=== PATIENT | male | born 1970 | race Caucasian/White ===

== ENCOUNTER 2021-04-10 11:33 | Inpatient (IN) | payer OTHER ==
[~2021-04-10] VITALS: Ht 180.3 cm; Wt 123.1 kg
[2021-04-10] MEDS ORDERED: DexAMETHasone SOD PHOS 10MG/1ML VIAL INJ IV ONE (11:45)
[2021-04-10] MEDS ORDERED: SODIUM CHLORIDE 0.9% 1,000 ML IV ONE (12:45)
[2021-04-10 12:48] LABS: Basophils # (auto) 0 10 ^3/uL (0-0.2); Basophils % (auto) 0.4 % (0.0-2.0); Eosinophils # (auto) 0 10 ^3/uL (0-0.8); Hemoglobin 15.4 g/dL (13.5-17.5); Lymphocytes # (auto) 0.5 10 ^3/uL (0.4-5.4); Lymphocytes % (auto) 7.8 % (10.0-50.0); Mean Corpuscular Hemoglobin 30.4 pg (28.0-32.0); Mean Corpuscular Volume 86.9 fL (80.0-100.0); Monocytes # (auto) 0.7 10 ^3/uL (0-1.3); Neutrophils # (auto) 5.3 10 ^3/uL (1.6-8.6); Neutrophils % (auto) 81.8 % (37.0-80.0); Nucleated Red Blood Cells % 0.1 %; Red Blood Cells 5.07 10^6/uL (4.5-5.90); Red Cell Distribution Width 13.8 % (11.8-14.3); White Blood Cell 6.5 10^3/uL (4.4-10.8)
[2021-04-10 13:05] LABS: Albumin 2.9 g/dL (3.4-5.0); Calcium 8.6 mg/dL (8.5-10.1); Potassium 3.5 mmol/L (3.5-5.1)
[2021-04-10 13:13] LABS: BUN/Creatinine Ratio 25.3; Bilirubin, Total 0.7 mg/dL (0.2-1.0); CRP High Sensitivity 15.5 mg/dL (< 0.3); Total Protein 7.6 g/dL (6.4-8.2)
[2021-04-10] MEDS ORDERED: ACETAMINOPHEN 500 MG TAB PO PRN (14:15)
[2021-04-10] MEDS ORDERED: REMDESIVIR PER PHARMACY 0 ML IV SCH (14:15)
[2021-04-10] MEDS ORDERED: ALBUTEROL SULF HFA 90MCG INH 200DOSE IN PRN (14:15)
[2021-04-10] MEDS ORDERED: HYDROcodone-ACET 5/325MG TAB PO PRN (14:30)
[2021-04-10] MEDS ORDERED: NITROGLYCERIN 0.4 MG SL TAB SL PRN (14:30)
[2021-04-10] MEDS ORDERED: ONDANSETRON HCL 4 MG/2 ML VIAL IV PRN (14:30)
[2021-04-10] MEDS ORDERED: MORPHINE SULF INJ 2 MG/ML SYRINGE 1ML IV PRN ×2 (14:30)
[2021-04-10] MEDS ORDERED: DOCUSATE SOD 100 MG CAP PO PRN (14:30)
[2021-04-10] MEDS ORDERED: LORazepam 0.5 MG TAB PO PRN (14:30)
[2021-04-10] MEDS ORDERED: PHEN1CAP74 PO (15:06)
[2021-04-10] MEDS ORDERED: ASCO100076 PO (15:06)
[2021-04-10] MEDS ORDERED: CHOL20009 (15:06)
[2021-04-10] MEDS ORDERED: MULTTAB99 PO (15:06)
[2021-04-10] MEDS ORDERED: LACTCAP35 PO (15:06)
[2021-04-10] MEDS ORDERED: IBUP200C95 PO (15:06)
[2021-04-10] MEDS ORDERED: CHOL20009 PO (15:09)
[2021-04-10 15:15] VITALS: BP 112/79
[2021-04-10 15:26] LABS: Cholesterol 119 mg/dL (< 200); HDL Cholesterol 34 mg/dL (40-59); LDL Cholesterol 72 mg/dL (< 100); Triglycerides 111 mg/dL (< 150)
[2021-04-10] MEDS: SODIUM CHLORIDE 0.9% 1,000 ML IV SCH (15:43)
[2021-04-10 16:01] LABS: Thyroid Stimulating Hormone 0.59 uIU/mL (0.358-3.74)
[2021-04-10 17:00] VITALS: BP_SYST 101; BP_DIAS 66; BP_DIAS 67
[2021-04-10] MEDS ORDERED: REMDESIVIR 200 MG in NS 210ml LOADING DOSE ADULT IV ONE (17:00)
[2021-04-10] MEDS: IPRATROPIUM BROMIDE HFA AER IN SCH ×2 (18:00→23:58)
[2021-04-10] MEDS: DOXYCYCLINE 100MG/250ML 250 ML IV SCH (21:33)
[2021-04-10] MEDS: FLORASTOR (S. BOULARDII) 250 MG CAP PO SCH (21:33)
[2021-04-10] MEDS: ENOXAPARIN SOD 40 MG/0.4 ML SYRINGE SC SCH (21:33)
[2021-04-10 22:00] VITALS: BP 110/68
[2021-04-10] MEDS: ALUM & MAG HYDROX-SIMETH LIQ(MAALOX) 30 ML PO PRN (22:03)
[2021-04-10 22:13] LABS: Urine Bacteria NONE SEEN /hpf (None Seen); Urine Blood Negative /uL (Negative); Urine Hyaline Cast MANY /lpf (0 - 2); Urine Mucus FEW (None Seen); Urine Specific Gravity 1.024 (1.001-1.035); Urine WBC 25 /hpf (0 - 3)
[2021-04-10 22:25] LABS: Alcohol, Urine < 3.0 mg/dL (0-10); Amphetamine Screen, Urine NEGATIVE (NEGATIVE); Barbiturate Scree,Urine NEGATIVE (NEGATIVE); Benzodiazephine Screen, Urine NEGATIVE (NEGATIVE); Cannabinoid Screen, Urine NEGATIVE (NEGATIVE); Cocaine Screen, Urine NEGATIVE (NEGATIVE); Opiate Scree,Urine NEGATIVE (NEGATIVE); Phencyclidine Screen, Urine NEGATIVE (NEGATIVE)
[2021-04-10] MEDS: BUDESONIDE (INHALATION) 180 MCG IH IN SCH (23:58)
[2021-04-10] MEDS: ALBUTEROL SULF HFA 90MCG INH 200DOSE IN PRN (23:58)
[2021-04-11 05:00] VITALS: BP 91/58
[2021-04-11 05:54] LABS: Basophils # (auto) 0 10 ^3/uL (0-0.2); Basophils % (auto) 0.1 % (0.0-2.0); Eosinophils # (auto) 0 10 ^3/uL (0-0.8); Hematocrit 43.8 % (41.0-53.0); Hemoglobin 15.4 g/dL (13.5-17.5); Lymphocytes # (auto) 0.8 10 ^3/uL (0.4-5.4); Lymphocytes % (auto) 8.4 % (10.0-50.0); Mean Corpuscular Hemoglobin 30.7 pg (28.0-32.0); Mean Corpuscular Hgb Conc. 35.1 g/dL (32.0-36.0); Mean Corpuscular Volume 87.4 fL (80.0-100.0); Monocytes # (auto) 0.8 10 ^3/uL (0-1.3); Monocytes % (auto) 9.1 % (0.0-12.0); Neutrophils # (auto) 7.6 10 ^3/uL (1.6-8.6); Neutrophils % (auto) 82.4 % (37.0-80.0); Red Blood Cells 5.01 10^6/uL (4.5-5.90); Red Cell Distribution Width 13.6 % (11.8-14.3); White Blood Cell 9.3 10^3/uL (4.4-10.8)
[2021-04-11 06:08] LABS: Albumin 2.9 g/dL (3.4-5.0); Calcium 8.3 mg/dL (8.5-10.1); Potassium 3.4 mmol/L (3.5-5.1)
[2021-04-11 06:11] LABS: Bilirubin, Total 0.5 mg/dL (0.2-1.0); Total Protein 7.8 g/dL (6.4-8.2)
[2021-04-11 06:19] LABS: BUN/Creatinine Ratio 32.3
[2021-04-11] MEDS ORDERED: IVERMECTIN 3 MG TAB PO ONE (07:00)
[2021-04-11] MEDS: IPRATROPIUM BROMIDE HFA AER IN SCH ×4 (07:03→21:50)
[2021-04-11] MEDS: BUDESONIDE (INHALATION) 180 MCG IH IN SCH ×2 (07:04→18:28)
[2021-04-11] MEDS: ALBUTEROL SULF HFA 90MCG INH 200DOSE IN PRN ×2 (07:06→18:29)
[2021-04-11] MEDS: SODIUM CHLORIDE 0.9% 1,000 ML IV SCH ×2 (07:34→21:23)
[2021-04-11] MEDS: ZINC SULFATE 220mg CAP or TAB PO SCH (08:59)
[2021-04-11] MEDS: FLORASTOR (S. BOULARDII) 250 MG CAP PO SCH ×2 (08:59→21:22)
[2021-04-11] MEDS: DexAMETHasone SOD PHOS 10MG/1ML VIAL INJ IV SCH (08:59)
[2021-04-11] MEDS: DOXYCYCLINE 100MG/250ML 250 ML IV SCH ×2 (08:59→21:22)
[2021-04-11] MEDS: ASCORBIC ACID 1,000 MG TAB PO SCH (09:00)
[2021-04-11] MEDS: CHOLECALCIFEROL (VITD3) 2,000 UNIT CAP/TAB PO SCH (09:00)
[2021-04-11] MEDS: ENOXAPARIN SOD 40 MG/0.4 ML SYRINGE SC SCH ×2 (09:00→21:22)
[2021-04-11 09:13] VITALS: BP 107/66
[2021-04-11 13:00] VITALS: BP 98/60
[2021-04-11] MEDS: REMDESIVIR 100mg 100 MG in SODIUM CHL 0.9% 230 ML IV SCH (15:43)
[2021-04-11 16:34] VITALS: BP 123/75
[2021-04-11 22:00] VITALS: BP 114/76
[2021-04-11] MEDS: ALUM & MAG HYDROX-SIMETH LIQ(MAALOX) 30 ML PO PRN (22:04)
[2021-04-12] VITALS (14 sets, daily range): BP systolic 101–136; BP diastolic 59–87
[2021-04-12] MEDS: IPRATROPIUM BROMIDE HFA AER IN SCH ×3 (06:00→22:00)
[2021-04-12 06:42] LABS: Basophils # (auto) 0 10 ^3/uL (0-0.2); Basophils % (auto) 0.1 % (0.0-2.0); Eosinophils # (auto) 0 10 ^3/uL (0-0.8); Hematocrit 43.2 % (41.0-53.0); Lymphocytes # (auto) 0.6 10 ^3/uL (0.4-5.4); Lymphocytes % (auto) 5.5 % (10.0-50.0); Mean Corpuscular Hemoglobin 30.8 pg (28.0-32.0); Mean Corpuscular Hgb Conc. 34.8 g/dL (32.0-36.0); Mean Corpuscular Volume 88.4 fL (80.0-100.0); Monocytes % (auto) 9.1 % (0.0-12.0); Neutrophils # (auto) 9.6 10 ^3/uL (1.6-8.6); Neutrophils % (auto) 85.3 % (37.0-80.0); Red Blood Cells 4.89 10^6/uL (4.5-5.90); White Blood Cell 11.3 10^3/uL (4.4-10.8)
[2021-04-12 07:07] LABS: Albumin 2.7 g/dL (3.4-5.0); BUN/Creatinine Ratio 39.8; Calcium 8.5 mg/dL (8.5-10.1)
[2021-04-12 07:17] LABS: Bilirubin, Total 0.5 mg/dL (0.2-1.0); Total Protein 7.1 g/dL (6.4-8.2)
[2021-04-12] MEDS: ZINC SULFATE 220mg CAP or TAB PO SCH (09:37)
[2021-04-12] MEDS: ASCORBIC ACID 1,000 MG TAB PO SCH (09:37)
[2021-04-12] MEDS: DexAMETHasone SOD PHOS 10MG/1ML VIAL INJ IV SCH (09:38)
[2021-04-12] MEDS: ENOXAPARIN SOD 40 MG/0.4 ML SYRINGE SC SCH ×2 (09:38→22:22)
[2021-04-12] MEDS: CHOLECALCIFEROL (VITD3) 2,000 UNIT CAP/TAB PO SCH (09:38)
[2021-04-12] MEDS: DOXYCYCLINE 100MG/250ML 250 ML IV SCH ×2 (09:39→22:20)
[2021-04-12] MEDS: FLORASTOR (S. BOULARDII) 250 MG CAP PO SCH ×2 (09:40→22:21)
[2021-04-12] MEDS: SODIUM CHLORIDE 0.9% 1,000 ML IV SCH (13:00)
[2021-04-12] MEDS: REMDESIVIR 100mg 100 MG in SODIUM CHL 0.9% 230 ML IV SCH (15:16)
[2021-04-12] MEDS ORDERED: ACETAMINOPHEN 650 mg PER 20.3 mL UD PO ONE (16:30)
[2021-04-12] MEDS ORDERED: diphenhdrAMINE HCL 50 MG/1 ML VL IV ONE (16:30)
[2021-04-12] MEDS ORDERED: methylPREDNISolone SOD SUCC 40 MG/ML VL IV ONE (16:30)
[2021-04-12] MEDS ORDERED: TOCILIZUMAB 400 MG in SODIUM CHL 0.9% 80 ML IV ONE (17:00)
[2021-04-12] MEDS: BUDESONIDE (INHALATION) 180 MCG IH IN SCH (18:50)
[2021-04-13] VITALS (24 sets, daily range): BP systolic 119–159; BP diastolic 75–100
[2021-04-13 04:06] LABS: Basophils # (auto) 0 10 ^3/uL (0-0.2); Basophils % (auto) 0.2 % (0.0-2.0); Eosinophils # (auto) 0 10 ^3/uL (0-0.8); Hematocrit 43.8 % (41.0-53.0); Hemoglobin 15.5 g/dL (13.5-17.5); Lymphocytes # (auto) 0.5 10 ^3/uL (0.4-5.4); Lymphocytes % (auto) 5.1 % (10.0-50.0); Mean Corpuscular Hgb Conc. 35.3 g/dL (32.0-36.0); Mean Corpuscular Volume 87.8 fL (80.0-100.0); Monocytes # (auto) 0.7 10 ^3/uL (0-1.3); Monocytes % (auto) 7.6 % (0.0-12.0); Neutrophils # (auto) 8.2 10 ^3/uL (1.6-8.6); Neutrophils % (auto) 87.1 % (37.0-80.0); Red Blood Cells 4.99 10^6/uL (4.5-5.90); Red Cell Distribution Width 13.6 % (11.8-14.3); White Blood Cell 9.4 10^3/uL (4.4-10.8)
[2021-04-13 04:19] LABS: Albumin 2.5 g/dL (3.4-5.0); BUN/Creatinine Ratio 34.5; Calcium 8.3 mg/dL (8.5-10.1); Potassium 4.6 mmol/L (3.5-5.1)
[2021-04-13 04:22] LABS: Bilirubin, Total 0.6 mg/dL (0.2-1.0); Total Protein 6.8 g/dL (6.4-8.2)
[2021-04-13] MEDS: SODIUM CHLORIDE 0.9% 1,000 ML IV SCH (08:25)
[2021-04-13] MEDS: ASCORBIC ACID 1,000 MG TAB PO SCH (08:59)
[2021-04-13] MEDS: DexAMETHasone SOD PHOS 10MG/1ML VIAL INJ IV SCH (08:59)
[2021-04-13] MEDS: FLORASTOR (S. BOULARDII) 250 MG CAP PO SCH ×2 (08:59→22:26)
[2021-04-13] MEDS: ZINC SULFATE 220mg CAP or TAB PO SCH (08:59)
[2021-04-13] MEDS: CHOLECALCIFEROL (VITD3) 2,000 UNIT CAP/TAB PO SCH (09:00)
[2021-04-13] MEDS: ENOXAPARIN SOD 40 MG/0.4 ML SYRINGE SC SCH ×2 (09:00→21:22)
[2021-04-13] MEDS ORDERED: FUROSEMIDE 40 MG/4 ML VIAL IV ONE (09:45)
[2021-04-13] MEDS ORDERED: diphenhdrAMINE HCL 50 MG/1 ML VL IV ONE (10:00)
[2021-04-13] MEDS: BUDESONIDE (INHALATION) 180 MCG IH IN SCH ×3 (10:00→21:31)
[2021-04-13] MEDS ORDERED: ACETAMINOPHEN 650 mg PER 20.3 mL UD PO ONE (10:00)
[2021-04-13] MEDS: DOXYCYCLINE 100MG/250ML 250 ML IV SCH ×2 (10:26→21:24)
[2021-04-13] MEDS ORDERED: TOCILIZUMAB 400 MG in SODIUM CHL 0.9% 80 ML IV ONE (10:30)
[2021-04-13] MEDS: IPRATROPIUM BROMIDE HFA AER IN SCH ×2 (13:46→21:31)
[2021-04-13] MEDS: ALBUTEROL SULF HFA 90MCG INH 200DOSE IN PRN (13:48)
[2021-04-13] MEDS: REMDESIVIR 100mg 100 MG in SODIUM CHL 0.9% 230 ML IV SCH (16:00)
[2021-04-13] MEDS: ALBUTEROL SULF HFA 90MCG INH 200DOSE IN SCH (21:31)
[2021-04-14] VITALS (35 sets, daily range): BP systolic 92–196; BP diastolic 42–107
[2021-04-14 04:29] LABS: Hematocrit 45.5 % (41.0-53.0); Hemoglobin 15.7 g/dL (13.5-17.5); Mean Corpuscular Hemoglobin 30.1 pg (28.0-32.0); Mean Corpuscular Hgb Conc. 34.5 g/dL (32.0-36.0); Mean Corpuscular Volume 87.2 fL (80.0-100.0); Red Blood Cells 5.22 10^6/uL (4.5-5.90); Red Cell Distribution Width 13.6 % (11.8-14.3)
[2021-04-14 04:36] LABS: Basophils % (manual) 0 (0.0-2.0); Blast Cells 0; Eosinophils % (manual) 0 (0-7); Monocytes % (manual) 0 (0-12); Myelocytes % 0; Promyelocytes % 0; Reactive Lymphocytes 0
[2021-04-14 04:37] LABS: Albumin 2.6 g/dL (3.4-5.0); Calcium 8.2 mg/dL (8.5-10.1); Potassium 4.6 mmol/L (3.5-5.1)
[2021-04-14 04:41] LABS: BUN/Creatinine Ratio 34.4
[2021-04-14 04:43] LABS: Bilirubin, Total 0.9 mg/dL (0.2-1.0); Total Protein 6.1 g/dL (6.4-8.2)
[2021-04-14 05:37] LABS: Band Neutrophils % (manual) 24; Lymphocytes % (manual) 1 (10.0-50.0); Metamyelocytes % 1
[2021-04-14] MEDS: ALBUTEROL SULF HFA 90MCG INH 200DOSE IN SCH ×2 (07:20→16:49)
[2021-04-14] MEDS: IPRATROPIUM BROMIDE HFA AER IN SCH ×2 (07:20→16:49)
[2021-04-14] MEDS: BUDESONIDE (INHALATION) 180 MCG IH IN SCH (07:21)
[2021-04-14] MEDS ORDERED: FUROSEMIDE 40 MG/4 ML VIAL IV ONE ×2 (08:30→18:00)
[2021-04-14] MEDS ORDERED: DOCUSATE SOD 100 MG CAP PO PRN (08:45)
[2021-04-14] MEDS: DexAMETHasone SOD PHOS 10MG/1ML VIAL INJ IV SCH (09:29)
[2021-04-14] MEDS: DOXYCYCLINE 100MG/250ML 250 ML IV SCH ×2 (09:29→22:05)
[2021-04-14] MEDS: CHOLECALCIFEROL (VITD3) 2,000 UNIT CAP/TAB PO SCH (09:30)
[2021-04-14] MEDS: ZINC SULFATE 220mg CAP or TAB PO SCH (09:30)
[2021-04-14] MEDS: ASCORBIC ACID 1,000 MG TAB PO SCH (09:30)
[2021-04-14] MEDS: FLORASTOR (S. BOULARDII) 250 MG CAP PO SCH (09:30)
[2021-04-14] MEDS: ENOXAPARIN SOD 40 MG/0.4 ML SYRINGE SC SCH ×2 (09:31→22:06)
[2021-04-14] MEDS: REMDESIVIR 100mg 100 MG in SODIUM CHL 0.9% 230 ML IV SCH (15:21)
[2021-04-14] MEDS: BUDESONIDE (INHALATION) 0.5 MG/2 ML NEB NEB SCH (22:08)
[2021-04-14] MEDS: ALBUTEROL SULF 2.5 MG/0.5ML(0.5%) NEB SOLN NEB SCH (22:08)
[2021-04-14] MEDS: IPRATROPIUM BROM 0.5 MG/2.5ML INH SOL NEB SCH (22:08)
[2021-04-15] VITALS (49 sets, daily range): BP systolic 60–205; BP diastolic 36–127
[2021-04-15] MEDS ORDERED: SUCCINYLCHOLINE CHLORIDE 20 MG/ML 10ML VIAL IV ONE ×2 (06:47→08:32)
[2021-04-15] MEDS ORDERED: ETOMIDATE (2MG/ML) 20ML VIAL IV ONE ×2 (06:47→08:31)
[2021-04-15] MEDS: IPRATROPIUM BROM 0.5 MG/2.5ML INH SOL NEB SCH ×3 (06:58→17:59)
[2021-04-15] MEDS: ALBUTEROL SULF 2.5 MG/0.5ML(0.5%) NEB SOLN NEB SCH ×3 (06:58→17:59)
[2021-04-15] MEDS: BUDESONIDE (INHALATION) 0.5 MG/2 ML NEB NEB SCH ×2 (06:58→17:59)
[2021-04-15] MEDS ORDERED: HYDROmorphone HCL 2 MG/ML VL ONE (08:17)
[2021-04-15] MEDS ORDERED: ROCURONIUM 10MG/ML 10ML VIAL IV ONE ×2 (08:31→08:54)
[2021-04-15] MEDS ORDERED: MIDAZOLAM HCL 5 MG/ML-1ML VIAL ONE (08:40)
[2021-04-15] MEDS ORDERED: PROPOFOL 100 ML IV ONE (08:41)
[2021-04-15] MEDS ORDERED: fentaNYL Drip 2500mCg/250mlNS 250 ML IV ONE (08:41)
[2021-04-15] MEDS ORDERED: MIDAZOLAM DRIP 50 mg/50mL 50 ML IV ONE (08:52)
[2021-04-15] MEDS: fentaNYL Drip 2500mCg/250mlNS 250 ML IV SCH ×2 (09:00→19:07)
[2021-04-15] MEDS: ROCURONIUM BROMIDE 1,000 MG in D5W 5% 150 ML IV SCH ×2 (09:45→17:00)
[2021-04-15] MEDS: NOREPINEPHRINE 8 MG/250ML KIT 250 ML IV SCH ×2 (09:55→17:00)
[2021-04-15] MEDS: ASCORBIC ACID 1,000 MG TAB PO SCH (10:00)
[2021-04-15] MEDS: ZINC SULFATE 220mg CAP or TAB PO SCH (10:00)
[2021-04-15] MEDS: CHOLECALCIFEROL (VITD3) 2,000 UNIT CAP/TAB PO SCH (10:00)
[2021-04-15] MEDS ORDERED: PANTOPRAZOLE 40 MG/10 ML VIAL INJ IV ONE (10:30)
[2021-04-15] MEDS: DexAMETHasone SOD PHOS 10MG/1ML VIAL INJ IV SCH (10:35)
[2021-04-15] MEDS: ENOXAPARIN SOD 40 MG/0.4 ML SYRINGE SC SCH ×2 (10:36→21:57)
[2021-04-15] MEDS ORDERED: SODIUM BICARBONATE 8.4 % INJ 50ML VIAL IV ONE (12:00)
[2021-04-15] MEDS: levoFLOXacin 500MG 100 ML IV SCH (12:56)
[2021-04-15] MEDS: MIDAZOLAM DRIP 50 mg/50mL 50 ML IV SCH ×3 (13:19→21:59)
[2021-04-16] VITALS (107 sets, daily range): BP systolic 63–154; BP diastolic 44–105
[2021-04-16] MEDS: MIDAZOLAM DRIP 50 mg/50mL 50 ML IV SCH ×2 (02:16→22:43)
[2021-04-16 05:15] LABS: Potassium 5.2 mmol/L (3.5-5.1)
[2021-04-16 05:22] LABS: Albumin 2.7 g/dL (3.4-5.0); BUN/Creatinine Ratio 39.1; Bilirubin, Total 1.6 mg/dL (0.2-1.0); Calcium 8.3 mg/dL (8.5-10.1); Total Protein 6.1 g/dL (6.4-8.2)
[2021-04-16] MEDS: fentaNYL Drip 2500mCg/250mlNS 250 ML IV SCH ×2 (06:17→18:09)
[2021-04-16] MEDS: ALBUTEROL SULF 2.5 MG/0.5ML(0.5%) NEB SOLN NEB SCH ×2 (06:25→14:08)
[2021-04-16] MEDS: BUDESONIDE (INHALATION) 0.5 MG/2 ML NEB NEB SCH (06:25)
[2021-04-16] MEDS: IPRATROPIUM BROM 0.5 MG/2.5ML INH SOL NEB SCH ×2 (06:25→14:08)
[2021-04-16] MEDS: NOREPINEPHRINE 8 MG/250ML KIT 250 ML IV SCH (08:33)
[2021-04-16 09:05] LABS: Hematocrit 48.8 % (41.0-53.0); Hemoglobin 16.5 g/dL (13.5-17.5); Mean Corpuscular Hgb Conc. 33.7 g/dL (32.0-36.0); Red Blood Cells 5.48 10^6/uL (4.5-5.90); Red Cell Distribution Width 13.4 % (11.8-14.3)
[2021-04-16 09:10] LABS: White Blood Cell 32.8 10^3/uL (4.4-10.8)
[2021-04-16 09:12] LABS: Band Neutrophils % (manual) 0; Basophils % (manual) 0 (0.0-2.0); Blast Cells 0; Eosinophils % (manual) 0 (0-7); Metamyelocytes % 0; Myelocytes % 0; Promyelocytes % 0; Reactive Lymphocytes 0
[2021-04-16 09:58] LABS: Lymphocytes % (manual) 1 (10.0-50.0); Monocytes % (manual) 9 (0-12)
[2021-04-16] MEDS: ENOXAPARIN SOD 40 MG/0.4 ML SYRINGE SC SCH ×2 (10:00→22:00)
[2021-04-16] MEDS: ZINC SULFATE 220mg CAP or TAB PO SCH (10:00)
[2021-04-16] MEDS: ASCORBIC ACID 1,000 MG TAB PO SCH (10:00)
[2021-04-16] MEDS: CHOLECALCIFEROL (VITD3) 2,000 UNIT CAP/TAB PO SCH (10:00)
[2021-04-16] MEDS: PANTOPRAZOLE 40 MG/10 ML VIAL INJ IV SCH (10:19)
[2021-04-16] MEDS: levoFLOXacin 500MG 100 ML IV SCH (10:19)
[2021-04-16] MEDS: DexAMETHasone SOD PHOS 10MG/1ML VIAL INJ IV SCH (10:19)
[2021-04-16] MEDS ORDERED: VANCOMYCIN 1GM/250ML 250 ML IV ONE ×2 (14:45→16:30)
[2021-04-16] MEDS ORDERED: VANCOMYCIN PER PHARMACY 0 MG IV SCH (14:45)
[2021-04-16] MEDS: ROCURONIUM BROMIDE 1,000 MG in D5W 5% 150 ML IV SCH (16:15)
[2021-04-16] MEDS: PIPERACILLIN-TAZOB 3.375GM 100 ML IV SCH (18:05)
[2021-04-16] MEDS ORDERED: FUROSEMIDE 20 MG/2 ML VIAL IV ONE (18:30)
[2021-04-17] VITALS (84 sets, daily range): BP systolic 41–144; BP diastolic 8–89
[2021-04-17] MEDS: PIPERACILLIN-TAZOB 3.375GM 100 ML IV SCH ×5 (00:20→23:51)
[2021-04-17] MEDS: IPRATROPIUM BROM 0.5 MG/2.5ML INH SOL NEB SCH ×4 (02:21→21:42)
[2021-04-17] MEDS: BUDESONIDE (INHALATION) 0.5 MG/2 ML NEB NEB SCH ×3 (02:22→21:42)
[2021-04-17] MEDS: ALBUTEROL SULF 2.5 MG/0.5ML(0.5%) NEB SOLN NEB SCH ×4 (02:23→21:42)
[2021-04-17] MEDS: MIDAZOLAM DRIP 50 mg/50mL 50 ML IV SCH ×2 (02:53→07:03)
[2021-04-17 05:00] LABS: Hematocrit 43.8 % (41.0-53.0); Mean Corpuscular Hemoglobin 30.5 pg (28.0-32.0); Mean Corpuscular Hgb Conc. 34.4 g/dL (32.0-36.0); Mean Corpuscular Volume 88.6 fL (80.0-100.0); Red Blood Cells 4.94 10^6/uL (4.5-5.90); Red Cell Distribution Width 13.8 % (11.8-14.3); White Blood Cell 23.2 10^3/uL (4.4-10.8)
[2021-04-17 05:07] LABS: Basophils % (manual) 0 (0.0-2.0); Blast Cells 0; Eosinophils % (manual) 0 (0-7); Myelocytes % 0; Promyelocytes % 0; Reactive Lymphocytes 0
[2021-04-17 05:23] LABS: Albumin 2.4 g/dL (3.4-5.0); Calcium 7.9 mg/dL (8.5-10.1); Potassium 4.9 mmol/L (3.5-5.1)
[2021-04-17 05:35] LABS: Urine Bacteria FEW /hpf (None Seen); Urine Blood Negative /uL (Negative); Urine Hyaline Cast MOD /lpf (0 - 2); Urine Mucus FEW (None Seen); Urine Specific Gravity 1.033 (1.001-1.035); Urine WBC 7 /hpf (0 - 3)
[2021-04-17 05:51] LABS: BUN/Creatinine Ratio 33.9
[2021-04-17 05:52] LABS: Bilirubin, Total 2.3 mg/dL (0.2-1.0); Total Protein 5.2 g/dL (6.4-8.2)
[2021-04-17 06:42] LABS: Band Neutrophils % (manual) 18; Lymphocytes % (manual) 3 (10.0-50.0); Metamyelocytes % 1; Monocytes % (manual) 5 (0-12)
[2021-04-17 06:49] LABS: CRP High Sensitivity 0.26 mg/dL (< 0.3)
[2021-04-17] MEDS: fentaNYL Drip 2500mCg/250mlNS 250 ML IV SCH (07:02)
[2021-04-17] MEDS: ROCURONIUM BROMIDE 1,000 MG in D5W 5% 150 ML IV SCH ×2 (08:42→22:09)
[2021-04-17] MEDS: ENOXAPARIN SOD 40 MG/0.4 ML SYRINGE SC SCH ×2 (10:00→20:09)
[2021-04-17] MEDS: CHOLECALCIFEROL (VITD3) 2,000 UNIT CAP/TAB PO SCH (10:13)
[2021-04-17] MEDS: ZINC SULFATE 220mg CAP or TAB PO SCH (10:13)
[2021-04-17] MEDS: ASCORBIC ACID 1,000 MG TAB PO SCH (10:13)
[2021-04-17] MEDS: DexAMETHasone SOD PHOS 10MG/1ML VIAL INJ IV SCH (10:19)
[2021-04-17] MEDS: PANTOPRAZOLE 40 MG/10 ML VIAL INJ IV SCH (10:19)
[2021-04-17] MEDS: VANCOMYCIN 1GM/250ML 250 ML IV SCH (10:19)
[2021-04-17 13:35] LABS: INR 1.54 (0.9-1.15)
[2021-04-18] VITALS (104 sets, daily range): BP systolic 100–251; BP diastolic -31–88
[2021-04-18 03:44] LABS: Hematocrit 46.4 % (41.0-53.0); Hemoglobin 15.5 g/dL (13.5-17.5); Mean Corpuscular Hemoglobin 30.1 pg (28.0-32.0); Mean Corpuscular Hgb Conc. 33.4 g/dL (32.0-36.0); Mean Corpuscular Volume 90.3 fL (80.0-100.0); Red Blood Cells 5.15 10^6/uL (4.5-5.90); Red Cell Distribution Width 14.1 % (11.8-14.3); White Blood Cell 24.8 10^3/uL (4.4-10.8)
[2021-04-18 03:47] LABS: Band Neutrophils % (manual) 0; Basophils % (manual) 0 (0.0-2.0); Blast Cells 0; Eosinophils % (manual) 0 (0-7); Promyelocytes % 0; Reactive Lymphocytes 0
[2021-04-18] MEDS: VANCOMYCIN 1GM/250ML 250 ML IV SCH ×2 (04:00→22:11)
[2021-04-18 04:06] LABS: Albumin 2.6 g/dL (3.4-5.0); Calcium 8.2 mg/dL (8.5-10.1)
[2021-04-18 04:09] LABS: BUN/Creatinine Ratio 38.4
[2021-04-18 04:10] LABS: Bilirubin, Total 3.4 mg/dL (0.2-1.0)
[2021-04-18 04:11] LABS: Potassium 5.7 mmol/L (3.5-5.1)
[2021-04-18 04:46] LABS: CRP High Sensitivity 0.181 mg/dL (< 0.3)
[2021-04-18] MEDS ORDERED: SODIUM ZIRCONIUM CYCL 10 GM PAK PO ONE (05:00)
[2021-04-18] MEDS ORDERED: CALCIUM GLUC 1,000mg/50ml-NS 50 ML IV ONE (05:00)
[2021-04-18] MEDS ORDERED: InsuLIN REG 1unit/0.01ml Soln (100units/ml) IV ONE (05:00)
[2021-04-18] MEDS ORDERED: DEXTROSE (50%) 50ML SYRG IV ONE (05:00)
[2021-04-18] MEDS: PIPERACILLIN-TAZOB 3.375GM 100 ML IV SCH ×4 (05:54→23:34)
[2021-04-18 08:11] LABS: Lymphocytes % (manual) 1 (10.0-50.0); Metamyelocytes % 1; Monocytes % (manual) 3 (0-12); Myelocytes % 1
[2021-04-18] MEDS: NOREPINEPHRINE 8 MG/250ML KIT 250 ML IV SCH (08:30)
[2021-04-18] MEDS: fentaNYL Drip 2500mCg/250mlNS 250 ML IV SCH (08:30)
[2021-04-18] MEDS: MIDAZOLAM DRIP 50 mg/50mL 50 ML IV SCH (08:30)
[2021-04-18] MEDS ORDERED: LACTATED RINGER'S 250 ML IV ONE ×2 (09:30→10:00)
[2021-04-18] MEDS: ENOXAPARIN SOD 40 MG/0.4 ML SYRINGE SC SCH ×2 (10:00→22:00)
[2021-04-18] MEDS: BUDESONIDE (INHALATION) 0.5 MG/2 ML NEB NEB SCH ×2 (10:00→22:08)
[2021-04-18] MEDS: DexAMETHasone SOD PHOS 10MG/1ML VIAL INJ IV SCH (10:06)
[2021-04-18] MEDS: ZINC SULFATE 220mg CAP or TAB PO SCH (10:06)
[2021-04-18] MEDS: CHOLECALCIFEROL (VITD3) 2,000 UNIT CAP/TAB PO SCH (10:06)
[2021-04-18] MEDS: PANTOPRAZOLE 40 MG/10 ML VIAL INJ IV SCH (10:06)
[2021-04-18] MEDS: ASCORBIC ACID 1,000 MG TAB PO SCH (10:06)
[2021-04-18] MEDS ORDERED: PHYTONADIONE (VIT K)10 MG/ML 1ML VIAL IV ONE (10:30)
[2021-04-18] MEDS ORDERED: phytonadione 10 MG in SODIUM CHL 0.9% 50 ML IV ONE (10:45)
[2021-04-18] MEDS: ROCURONIUM BROMIDE 1,000 MG in D5W 5% 150 ML IV SCH (14:17)
[2021-04-18] MEDS: ALBUTEROL SULF 2.5 MG/0.5ML(0.5%) NEB SOLN NEB SCH ×3 (14:18→22:08)
[2021-04-18] MEDS: IPRATROPIUM BROM 0.5 MG/2.5ML INH SOL NEB SCH ×3 (14:18→22:08)
[2021-04-18] MEDS ORDERED: BUMETANIDE 2.5mg/10ml (0.25 mg/ml) INJ IV ONE (17:00)
[2021-04-18] MEDS ORDERED: SODIUM CHLORIDE 0.9% 1,000 ML IV ONE (17:00)
[2021-04-18 20:10] LABS: BUN/Creatinine Ratio 42.1; Calcium 8.3 mg/dL (8.5-10.1); Potassium 5.4 mmol/L (3.5-5.1)
[2021-04-18 23:44] LABS: Urine Bacteria FEW /hpf (None Seen); Urine Blood Negative /uL (Negative); Urine Hyaline Cast MANY /lpf (0 - 2); Urine Mucus FEW (None Seen); Urine Specific Gravity 1.013 (1.001-1.035); Urine WBC 4 /hpf (0 - 3)
[2021-04-18 23:45] LABS: Protein, Urine 13.4 mg/dL (0.0-11.9)
[2021-04-19] VITALS (107 sets, daily range): BP systolic 94–176; BP diastolic 55–100
[2021-04-19] MEDS ORDERED: PROPOFOL 100 ML IV SCH (02:00)
[2021-04-19] MEDS: PROPOFOL 100 ML IV SCH ×5 (02:32→17:32)
[2021-04-19] MEDS: NOREPINEPHRINE 8 MG/250ML KIT 250 ML IV SCH (02:42)
[2021-04-19 05:19] LABS: Hematocrit 44.8 % (41.0-53.0); Hemoglobin 14.8 g/dL (13.5-17.5); Mean Corpuscular Hemoglobin 29.8 pg (28.0-32.0); Mean Corpuscular Volume 90.3 fL (80.0-100.0); Red Blood Cells 4.96 10^6/uL (4.5-5.90); Red Cell Distribution Width 13.9 % (11.8-14.3); White Blood Cell 29.3 10^3/uL (4.4-10.8)
[2021-04-19 05:21] LABS: Basophils % (manual) 0 (0.0-2.0); Blast Cells 0; Eosinophils % (manual) 0 (0-7); Myelocytes % 0; Promyelocytes % 0; Reactive Lymphocytes 0
[2021-04-19 05:41] LABS: Calcium 8.1 mg/dL (8.5-10.1); Potassium 5.4 mmol/L (3.5-5.1)
[2021-04-19 05:44] LABS: BUN/Creatinine Ratio 42.1; CRP High Sensitivity 0.09 mg/dL (< 0.3)
[2021-04-19] MEDS: ROCURONIUM BROMIDE 1,000 MG in D5W 5% 150 ML IV SCH ×2 (06:10→17:32)
[2021-04-19] MEDS: PIPERACILLIN-TAZOB 3.375GM 100 ML IV SCH ×3 (06:11→19:00)
[2021-04-19] MEDS: ALBUTEROL SULF 2.5 MG/0.5ML(0.5%) NEB SOLN NEB SCH ×3 (06:22→19:43)
[2021-04-19] MEDS: BUDESONIDE (INHALATION) 0.5 MG/2 ML NEB NEB SCH ×2 (06:22→19:43)
[2021-04-19] MEDS: IPRATROPIUM BROM 0.5 MG/2.5ML INH SOL NEB SCH ×3 (06:22→19:43)
[2021-04-19 08:19] LABS: Band Neutrophils % (manual) 5; Lymphocytes % (manual) 4 (10.0-50.0); Metamyelocytes % 1; Monocytes % (manual) 4 (0-12)
[2021-04-19] MEDS: MIDAZOLAM DRIP 50 mg/50mL 50 ML IV SCH ×3 (08:30→15:19)
[2021-04-19] MEDS: fentaNYL Drip 2500mCg/250mlNS 250 ML IV SCH (08:30)
[2021-04-19] MEDS: PANTOPRAZOLE 40 MG/10 ML VIAL INJ IV SCH (09:34)
[2021-04-19] MEDS: DexAMETHasone SOD PHOS 10MG/1ML VIAL INJ IV SCH (09:34)
[2021-04-19] MEDS: ZINC SULFATE 220mg CAP or TAB PO SCH (09:34)
[2021-04-19] MEDS: ENOXAPARIN SOD 40 MG/0.4 ML SYRINGE SC SCH ×2 (09:35→21:43)
[2021-04-19] MEDS: CHOLECALCIFEROL (VITD3) 2,000 UNIT CAP/TAB PO SCH (09:35)
[2021-04-19] MEDS: ASCORBIC ACID 1,000 MG TAB PO SCH (09:35)
[2021-04-19] MEDS: VANCOMYCIN 1GM/250ML 250 ML IV SCH (17:31)
[2021-04-20] VITALS (101 sets, daily range): BP systolic 88–143; BP diastolic 45–81
[2021-04-20 04:39] LABS: Hematocrit 40.9 % (41.0-53.0); Hemoglobin 13.9 g/dL (13.5-17.5); Mean Corpuscular Hemoglobin 30.9 pg (28.0-32.0); Red Blood Cells 4.49 10^6/uL (4.5-5.90); Red Cell Distribution Width 14.2 % (11.8-14.3); White Blood Cell 26.6 10^3/uL (4.4-10.8)
[2021-04-20 04:52] LABS: Albumin 2.6 g/dL (3.4-5.0)
[2021-04-20 04:56] LABS: BUN/Creatinine Ratio 44.2; Bilirubin, Direct 5.4 mg/dL (0-0.2); Bilirubin, Total 5.9 mg/dL (0.2-1.0); CRP High Sensitivity 0.06 mg/dL (< 0.3); Total Protein 5.5 g/dL (6.4-8.2)
[2021-04-20 05:04] LABS: Basophils % (manual) 0 (0.0-2.0); Blast Cells 0; Eosinophils % (manual) 0 (0-7); Promyelocytes % 0; Reactive Lymphocytes 0
[2021-04-20 05:21] LABS: Potassium 5.8 mmol/L (3.5-5.1)
[2021-04-20 05:40] LABS: Band Neutrophils % (manual) 14; Lymphocytes % (manual) 3 (10.0-50.0); Metamyelocytes % 1; Monocytes % (manual) 9 (0-12); Myelocytes % 1
[2021-04-20] MEDS: PIPERACILLIN-TAZOB 3.375GM 100 ML IV SCH ×4 (06:07→18:16)
[2021-04-20] MEDS: ALBUTEROL SULF 2.5 MG/0.5ML(0.5%) NEB SOLN NEB SCH ×3 (06:31→18:55)
[2021-04-20] MEDS: IPRATROPIUM BROM 0.5 MG/2.5ML INH SOL NEB SCH ×3 (06:32→18:55)
[2021-04-20] MEDS: BUDESONIDE (INHALATION) 0.5 MG/2 ML NEB NEB SCH ×2 (06:32→18:55)
[2021-04-20] MEDS: NOREPINEPHRINE 8 MG/250ML KIT 250 ML IV SCH (08:30)
[2021-04-20] MEDS: fentaNYL Drip 2500mCg/250mlNS 250 ML IV SCH (09:39)
[2021-04-20] MEDS: ASCORBIC ACID 1,000 MG TAB PO SCH (09:40)
[2021-04-20] MEDS: DexAMETHasone SOD PHOS 10MG/1ML VIAL INJ IV SCH (09:40)
[2021-04-20] MEDS: CHOLECALCIFEROL (VITD3) 2,000 UNIT CAP/TAB PO SCH (09:40)
[2021-04-20] MEDS: ZINC SULFATE 220mg CAP or TAB PO SCH (09:40)
[2021-04-20] MEDS: PANTOPRAZOLE 40 MG/10 ML VIAL INJ IV SCH (09:40)
[2021-04-20] MEDS: ENOXAPARIN SOD 40 MG/0.4 ML SYRINGE SC SCH ×2 (09:40→22:00)
[2021-04-20] MEDS: VANCOMYCIN 1GM/250ML 250 ML IV SCH (10:33)
[2021-04-20] MEDS: ROCURONIUM BROMIDE 1,000 MG in D5W 5% 150 ML IV SCH (13:54)
[2021-04-20] MEDS: SODIUM ZIRCONIUM CYCL 10 GM PAK PO SCH ×2 (16:15→22:28)
[2021-04-20] MEDS ORDERED: SODIUM ZIRCONIUM CYCL 10 GM PAK PO ONE (22:00)
[2021-04-21] VITALS (101 sets, daily range): BP systolic 100–160; BP diastolic 55–99
[2021-04-21] MEDS: PIPERACILLIN-TAZOB 3.375GM 100 ML IV SCH ×5 (00:17→23:47)
[2021-04-21] MEDS: PROPOFOL 100 ML IV SCH ×2 (02:34→05:25)
[2021-04-21] MEDS: VANCOMYCIN 1GM/250ML 250 ML IV SCH ×2 (04:03→21:48)
[2021-04-21] MEDS: MIDAZOLAM DRIP 50 mg/50mL 50 ML IV SCH (04:04)
[2021-04-21] MEDS: ROCURONIUM BROMIDE 1,000 MG in D5W 5% 150 ML IV SCH ×2 (05:32→21:10)
[2021-04-21 06:02] LABS: Hematocrit 38.3 % (41.0-53.0); Hemoglobin 13.4 g/dL (13.5-17.5); Mean Corpuscular Hemoglobin 31.6 pg (28.0-32.0); Mean Corpuscular Hgb Conc. 34.9 g/dL (32.0-36.0); Mean Corpuscular Volume 90.4 fL (80.0-100.0); Red Blood Cells 4.23 10^6/uL (4.5-5.90); Red Cell Distribution Width 14.4 % (11.8-14.3); White Blood Cell 24.5 10^3/uL (4.4-10.8)
[2021-04-21] MEDS: SODIUM ZIRCONIUM CYCL 10 GM PAK PO SCH ×3 (06:02→21:48)
[2021-04-21 06:13] LABS: Basophils % (manual) 0 (0.0-2.0); Blast Cells 0; Eosinophils % (manual) 0 (0-7); Promyelocytes % 0; Reactive Lymphocytes 0
[2021-04-21] MEDS: BUDESONIDE (INHALATION) 0.5 MG/2 ML NEB NEB SCH ×2 (06:33→22:24)
[2021-04-21] MEDS: IPRATROPIUM BROM 0.5 MG/2.5ML INH SOL NEB SCH ×3 (06:33→22:24)
[2021-04-21] MEDS: ALBUTEROL SULF 2.5 MG/0.5ML(0.5%) NEB SOLN NEB SCH ×3 (06:33→22:24)
[2021-04-21 06:41] LABS: Albumin 2.4 g/dL (3.4-5.0); BUN/Creatinine Ratio 46.9; Bilirubin, Direct 4.3 mg/dL (0-0.2); Bilirubin, Total 6.2 mg/dL (0.2-1.0); CRP High Sensitivity 0.06 mg/dL (< 0.3); Total Protein 5.5 g/dL (6.4-8.2)
[2021-04-21 06:56] LABS: Potassium 6.1 mmol/L (3.5-5.1)
[2021-04-21 07:48] LABS: Band Neutrophils % (manual) 9; Lymphocytes % (manual) 3 (10.0-50.0); Metamyelocytes % 1; Monocytes % (manual) 3 (0-12); Myelocytes % 1
[2021-04-21] MEDS: NOREPINEPHRINE 8 MG/250ML KIT 250 ML IV SCH (08:30)
[2021-04-21] MEDS: fentaNYL Drip 2500mCg/250mlNS 250 ML IV SCH (09:16)
[2021-04-21] MEDS ORDERED: ALBUTEROL SULF 2.5 MG/0.5ML(0.5%) NEB SOLN NEB ONE (09:45)
[2021-04-21] MEDS ORDERED: DEXTROSE (50%) 50ML SYRG IV ONE (09:45)
[2021-04-21] MEDS ORDERED: CALCIUM GLUC 1,000mg/50ml-NS 50 ML IV ONE (09:45)
[2021-04-21] MEDS ORDERED: InsuLIN REG 1unit/0.01ml Soln (100units/ml) IV ONE (09:45)
[2021-04-21] MEDS: PANTOPRAZOLE 40 MG/10 ML VIAL INJ IV SCH (10:39)
[2021-04-21] MEDS: DexAMETHasone SOD PHOS 10MG/1ML VIAL INJ IV SCH (10:39)
[2021-04-21] MEDS: ASCORBIC ACID 1,000 MG TAB PO SCH (10:40)
[2021-04-21] MEDS: CHOLECALCIFEROL (VITD3) 2,000 UNIT CAP/TAB PO SCH (10:40)
[2021-04-21] MEDS: ENOXAPARIN SOD 40 MG/0.4 ML SYRINGE SC SCH ×2 (10:40→21:49)
[2021-04-21] MEDS: ZINC SULFATE 220mg CAP or TAB PO SCH (10:40)
[2021-04-21] MEDS: FUROSEMIDE 40 MG/4 ML VIAL IV SCH ×2 (13:22→17:28)
[2021-04-21] MEDS ORDERED: DEXTROSE (50%) 50ML SYRG IV PRN (16:45)
[2021-04-21] MEDS: InsuLIN REG 1unit/0.01ml Soln (100units/ml) SC SCH ×2 (17:54→23:43)
[2021-04-21] MEDS: ACCU-CHEK COMFORT CURVE STRIP VI SCH ×2 (18:08→23:43)
[2021-04-21] MEDS: ACETAMINOPHEN 325 MG TAB PO PRN (19:46)
[2021-04-22] VITALS (101 sets, daily range): BP systolic 84–150; BP diastolic 43–95
[2021-04-22 03:32] LABS: Hemoglobin 13.4 g/dL (13.5-17.5); Mean Corpuscular Hemoglobin 31.8 pg (28.0-32.0); Mean Corpuscular Hgb Conc. 35.3 g/dL (32.0-36.0); Mean Corpuscular Volume 90.1 fL (80.0-100.0); Red Blood Cells 4.22 10^6/uL (4.5-5.90); Red Cell Distribution Width 14.2 % (11.8-14.3); White Blood Cell 26.1 10^3/uL (4.4-10.8)
[2021-04-22 03:58] LABS: Albumin 2.5 g/dL (3.4-5.0); Bilirubin, Direct 4.9 mg/dL (0-0.2); CRP High Sensitivity 0.07 mg/dL (< 0.3); Calcium 7.7 mg/dL (8.5-10.1); Potassium 5.3 mmol/L (3.5-5.1)
[2021-04-22 04:00] LABS: Basophils % (manual) 0 (0.0-2.0); Blast Cells 0; Eosinophils % (manual) 0 (0-7); Promyelocytes % 0; Reactive Lymphocytes 0
[2021-04-22 04:06] LABS: BUN/Creatinine Ratio 40.4; Bilirubin, Total 7.1 mg/dL (0.2-1.0)
[2021-04-22 04:46] LABS: Band Neutrophils % (manual) 14; Lymphocytes % (manual) 2 (10.0-50.0); Metamyelocytes % 2; Monocytes % (manual) 4 (0-12); Myelocytes % 2
[2021-04-22 04:57] LABS: Total Protein 5.2 g/dL (6.4-8.2)
[2021-04-22] MEDS: SODIUM ZIRCONIUM CYCL 10 GM PAK PO SCH ×3 (05:30→22:13)
[2021-04-22] MEDS: PIPERACILLIN-TAZOB 3.375GM 100 ML IV SCH ×4 (05:30→23:52)
[2021-04-22] MEDS: ACCU-CHEK COMFORT CURVE STRIP VI SCH ×3 (05:30→17:55)
[2021-04-22] MEDS: FUROSEMIDE 40 MG/4 ML VIAL IV SCH (05:30)
[2021-04-22] MEDS: InsuLIN REG 1unit/0.01ml Soln (100units/ml) SC SCH ×3 (05:50→17:51)
[2021-04-22] MEDS: IPRATROPIUM BROM 0.5 MG/2.5ML INH SOL NEB SCH ×2 (06:35→22:04)
[2021-04-22] MEDS: ALBUTEROL SULF 2.5 MG/0.5ML(0.5%) NEB SOLN NEB SCH ×2 (06:36→22:04)
[2021-04-22] MEDS: BUDESONIDE (INHALATION) 0.5 MG/2 ML NEB NEB SCH ×2 (06:36→22:04)
[2021-04-22] MEDS: fentaNYL Drip 2500mCg/250mlNS 250 ML IV SCH ×2 (08:30→19:33)
[2021-04-22] MEDS: NOREPINEPHRINE 8 MG/250ML KIT 250 ML IV SCH (08:30)
[2021-04-22] MEDS: DexAMETHasone SOD PHOS 10MG/1ML VIAL INJ IV SCH (09:35)
[2021-04-22] MEDS: PANTOPRAZOLE 40 MG/10 ML VIAL INJ IV SCH (09:35)
[2021-04-22] MEDS: ZINC SULFATE 220mg CAP or TAB PO SCH (09:35)
[2021-04-22] MEDS: ASCORBIC ACID 1,000 MG TAB PO SCH (09:35)
[2021-04-22] MEDS: CHOLECALCIFEROL (VITD3) 2,000 UNIT CAP/TAB PO SCH (09:35)
[2021-04-22] MEDS: MIDAZOLAM DRIP 50 mg/50mL 50 ML IV SCH ×2 (09:48→18:01)
[2021-04-22] MEDS: ENOXAPARIN SOD 40 MG/0.4 ML SYRINGE SC SCH ×2 (10:54→22:13)
[2021-04-22] MEDS ORDERED: TPN PER PHARMACY 0 ML IV SCH (11:15)
[2021-04-22] MEDS ORDERED: Glucerna 1.2 Cal 1Liter BOTTLE GT SCH (11:45)
[2021-04-22 11:48] LABS: Magnesium 3.1 mg/dL (1.6-2.6); Phosphorus 3.9 mg/dL (2.5-4.90)
[2021-04-22 12:19] LABS: Pre Albumin > 60.0 mg/dL (20.0-40.0); Triglycerides 1645 mg/dL (< 150)
[2021-04-22] MEDS: ROCURONIUM BROMIDE 1,000 MG in D5W 5% 150 ML IV SCH (12:48)
[2021-04-22] MEDS: BUMETANIDE INJECTION 12.5 MG in GIVE UN-DILUTED 0 ML IV SCH (14:10)
[2021-04-22] MEDS: CALCIUM ACETATE 667 MG CAP NG SCH ×2 (14:11→22:12)
[2021-04-22] MEDS: VANCOMYCIN 1GM/250ML 250 ML IV SCH (16:02)
[2021-04-22] MEDS: PROPOFOL 100 ML IV SCH ×3 (18:01→23:47)
[2021-04-23] VITALS (106 sets, daily range): BP systolic 72–154; BP diastolic 39–88
[2021-04-23] MEDS: ACCU-CHEK COMFORT CURVE STRIP VI SCH ×4 (00:05→17:43)
[2021-04-23] MEDS: InsuLIN REG 1unit/0.01ml Soln (100units/ml) SC SCH ×4 (00:07→17:44)
[2021-04-23] MEDS: PROPOFOL 100 ML IV SCH ×4 (04:12→17:24)
[2021-04-23] MEDS: MIDAZOLAM DRIP 50 mg/50mL 50 ML IV SCH ×4 (04:13→15:24)
[2021-04-23] MEDS: ROCURONIUM BROMIDE 1,000 MG in D5W 5% 150 ML IV SCH ×2 (04:26→20:04)
[2021-04-23 04:34] LABS: Hematocrit 37.8 % (41.0-53.0); Mean Corpuscular Hemoglobin 31.3 pg (28.0-32.0); Mean Corpuscular Hgb Conc. 34.4 g/dL (32.0-36.0); Mean Corpuscular Volume 90.9 fL (80.0-100.0); Red Blood Cells 4.16 10^6/uL (4.5-5.90); Red Cell Distribution Width 14.3 % (11.8-14.3); White Blood Cell 21.6 10^3/uL (4.4-10.8)
[2021-04-23 04:47] LABS: Albumin 2.6 g/dL (3.4-5.0); Calcium 7.5 mg/dL (8.5-10.1); Potassium 3.9 mmol/L (3.5-5.1)
[2021-04-23 04:52] LABS: Basophils % (manual) 0 (0.0-2.0); Blast Cells 0; Eosinophils % (manual) 0 (0-7); Myelocytes % 0; Promyelocytes % 0; Reactive Lymphocytes 0
[2021-04-23 04:53] LABS: Bilirubin, Direct 5.8 mg/dL (0-0.2); Bilirubin, Total 7.8 mg/dL (0.2-1.0); CRP High Sensitivity 0.15 mg/dL (< 0.3); Total Protein 5.6 g/dL (6.4-8.2)
[2021-04-23 05:02] LABS: BUN/Creatinine Ratio 37.9
[2021-04-23] MEDS: PIPERACILLIN-TAZOB 3.375GM 100 ML IV SCH ×4 (06:00→23:30)
[2021-04-23] MEDS: SODIUM ZIRCONIUM CYCL 10 GM PAK PO SCH ×2 (06:00→22:00)
[2021-04-23] MEDS: CALCIUM ACETATE 667 MG CAP NG SCH ×3 (06:00→22:03)
[2021-04-23] MEDS: BUDESONIDE (INHALATION) 0.5 MG/2 ML NEB NEB SCH ×2 (06:19→22:39)
[2021-04-23] MEDS: IPRATROPIUM BROM 0.5 MG/2.5ML INH SOL NEB SCH ×3 (06:19→22:39)
[2021-04-23] MEDS: ALBUTEROL SULF 2.5 MG/0.5ML(0.5%) NEB SOLN NEB SCH ×3 (06:19→22:39)
[2021-04-23 06:40] LABS: Band Neutrophils % (manual) 16; Lymphocytes % (manual) 3 (10.0-50.0); Metamyelocytes % 1; Monocytes % (manual) 5 (0-12)
[2021-04-23] MEDS: fentaNYL Drip 2500mCg/250mlNS 250 ML IV SCH ×3 (07:40→17:25)
[2021-04-23] MEDS: NOREPINEPHRINE 8 MG/250ML KIT 250 ML IV SCH (08:30)
[2021-04-23] MEDS: PANTOPRAZOLE 40 MG/10 ML VIAL INJ IV SCH (09:23)
[2021-04-23] MEDS: DexAMETHasone SOD PHOS 10MG/1ML VIAL INJ IV SCH (09:23)
[2021-04-23] MEDS: ENOXAPARIN SOD 40 MG/0.4 ML SYRINGE SC SCH ×2 (09:24→22:03)
[2021-04-23] MEDS: ZINC SULFATE 220mg CAP or TAB PO SCH (09:24)
[2021-04-23] MEDS: CHOLECALCIFEROL (VITD3) 2,000 UNIT CAP/TAB PO SCH (09:25)
[2021-04-23] MEDS: ASCORBIC ACID 1,000 MG TAB PO SCH (09:25)
[2021-04-23] MEDS: VANCOMYCIN 1GM/250ML 250 ML IV SCH ×2 (09:26→12:43)
[2021-04-23] MEDS: BUMETANIDE INJECTION 12.5 MG in GIVE UN-DILUTED 0 ML IV SCH (15:24)
[2021-04-24] VITALS (100 sets, daily range): BP systolic 80–131; BP diastolic 43–79
[2021-04-24] MEDS: ACCU-CHEK COMFORT CURVE STRIP VI SCH ×5 (00:04→23:15)
[2021-04-24] MEDS: InsuLIN REG 1unit/0.01ml Soln (100units/ml) SC SCH ×5 (00:05→23:59)
[2021-04-24] MEDS: VANCOMYCIN 1GM/250ML 250 ML IV SCH ×2 (03:15→18:03)
[2021-04-24 04:33] LABS: Hemoglobin 12.7 g/dL (13.5-17.5); Mean Corpuscular Hemoglobin 32.6 pg (28.0-32.0); Mean Corpuscular Hgb Conc. 36.2 g/dL (32.0-36.0); Mean Corpuscular Volume 90.1 fL (80.0-100.0); Red Blood Cells 3.88 10^6/uL (4.5-5.90); Red Cell Distribution Width 14.5 % (11.8-14.3); White Blood Cell 21.2 10^3/uL (4.4-10.8)
[2021-04-24 04:48] LABS: Albumin 2.4 g/dL (3.4-5.0); Calcium 7.5 mg/dL (8.5-10.1); Potassium 3.3 mmol/L (3.5-5.1)
[2021-04-24 04:51] LABS: Bilirubin, Direct 6.8 mg/dL (0-0.2)
[2021-04-24 04:54] LABS: Basophils % (manual) 0 (0.0-2.0); Blast Cells 0; Monocytes % (manual) 0 (0-12); Myelocytes % 0; Promyelocytes % 0; Reactive Lymphocytes 0
[2021-04-24 04:55] LABS: BUN/Creatinine Ratio 39.6
[2021-04-24 05:16] LABS: Total Protein 4.5 g/dL (6.4-8.2)
[2021-04-24] MEDS: SODIUM ZIRCONIUM CYCL 10 GM PAK PO SCH (06:00)
[2021-04-24] MEDS: CALCIUM ACETATE 667 MG CAP NG SCH ×3 (06:23→23:00)
[2021-04-24] MEDS: PIPERACILLIN-TAZOB 3.375GM 100 ML IV SCH ×3 (06:23→18:03)
[2021-04-24 06:36] LABS: Band Neutrophils % (manual) 13; Eosinophils % (manual) 1 (0-7); Lymphocytes % (manual) 3 (10.0-50.0); Metamyelocytes % 1
[2021-04-24] MEDS: BUDESONIDE (INHALATION) 0.5 MG/2 ML NEB NEB SCH ×2 (06:56→22:42)
[2021-04-24] MEDS: IPRATROPIUM BROM 0.5 MG/2.5ML INH SOL NEB SCH ×3 (06:56→22:42)
[2021-04-24] MEDS: ALBUTEROL SULF 2.5 MG/0.5ML(0.5%) NEB SOLN NEB SCH ×3 (06:56→22:42)
[2021-04-24] MEDS: NOREPINEPHRINE 8 MG/250ML KIT 250 ML IV SCH (08:30)
[2021-04-24] MEDS: MIDAZOLAM DRIP 50 mg/50mL 50 ML IV SCH ×4 (10:16→21:54)
[2021-04-24] MEDS: fentaNYL Drip 2500mCg/250mlNS 250 ML IV SCH ×2 (10:18→19:44)
[2021-04-24] MEDS: ZINC SULFATE 220mg CAP or TAB PO SCH (10:23)
[2021-04-24] MEDS: DexAMETHasone SOD PHOS 10MG/1ML VIAL INJ IV SCH (10:23)
[2021-04-24] MEDS: PANTOPRAZOLE 40 MG/10 ML VIAL INJ IV SCH (10:23)
[2021-04-24] MEDS: ENOXAPARIN SOD 40 MG/0.4 ML SYRINGE SC SCH (10:24)
[2021-04-24] MEDS: CHOLECALCIFEROL (VITD3) 2,000 UNIT CAP/TAB PO SCH (10:24)
[2021-04-24] MEDS: ASCORBIC ACID 1,000 MG TAB PO SCH (10:24)
[2021-04-24] MEDS: BUMETANIDE INJECTION 12.5 MG in GIVE UN-DILUTED 0 ML IV SCH (10:26)
[2021-04-24] MEDS: ROCURONIUM BROMIDE 1,000 MG in D5W 5% 150 ML IV SCH (11:38)
[2021-04-24] MEDS: POTASSIUM CHL 20MEQ/100ML 100 ML IV SCH ×2 (12:00→15:03)
[2021-04-24] MEDS: ACETAMINOPHEN 325 MG TAB PO PRN (13:00)
[2021-04-24] MEDS: PROPOFOL 100 ML IV SCH ×4 (15:11→22:15)
[2021-04-24] MEDS ORDERED: HEPARIN SODIUM (PORCINE) 5000 UNITS/ML 1ML VIAL IV ONE (15:30)
[2021-04-24] MEDS: acetaZOLAMIDE SODIUM 500 MG VL IV SCH ×2 (16:00→23:00)
[2021-04-24] MEDS: METOCLOPRAMIDE HCL 5MG/ml INJ 2ml VIAL IV SCH ×2 (16:05→23:00)
[2021-04-24 16:15] LABS: Hematocrit 36.9 % (41.0-53.0); Hemoglobin 12.9 g/dL (13.5-17.5); Mean Corpuscular Hemoglobin 31.8 pg (28.0-32.0); Mean Corpuscular Hgb Conc. 35.1 g/dL (32.0-36.0); Mean Corpuscular Volume 90.8 fL (80.0-100.0); Red Blood Cells 4.07 10^6/uL (4.5-5.90); Red Cell Distribution Width 14.5 % (11.8-14.3); White Blood Cell 22.3 10^3/uL (4.4-10.8)
[2021-04-24 16:23] LABS: Partial Thromboplastin Time 22.2 sec (23.0-31.2)
[2021-04-24 16:35] LABS: Basophils % (manual) 0 (0.0-2.0); Blast Cells 0; Metamyelocytes % 0; Myelocytes % 0; Promyelocytes % 0; Reactive Lymphocytes 0
[2021-04-24] MEDS: HEPARIN DRIP/D5W 100UNITS/ML 250 ML IV SCH (16:46)
[2021-04-24 17:57] LABS: Band Neutrophils % (manual) 4; Eosinophils % (manual) 1 (0-7); Lymphocytes % (manual) 1 (10.0-50.0); Monocytes % (manual) 2 (0-12)
[2021-04-24] MEDS: INSULIN LANTUS (GLARGINE) 1 /0.01ml (100units/ml) SC SCH (23:15)
[2021-04-25] VITALS (105 sets, daily range): BP systolic 86–126; BP diastolic 35–64
[2021-04-25 00:10] LABS: INR 1.06 (0.9-1.15)
[2021-04-25] MEDS: PIPERACILLIN-TAZOB 3.375GM 100 ML IV SCH ×4 (00:10→17:49)
[2021-04-25 00:12] LABS: Partial Thromboplastin Time 103.3 sec (23.0-31.2)
[2021-04-25] MEDS: PROPOFOL 100 ML IV SCH ×8 (00:50→22:06)
[2021-04-25] MEDS: MIDAZOLAM DRIP 50 mg/50mL 50 ML IV SCH ×4 (01:30→23:47)
[2021-04-25] MEDS: ROCURONIUM BROMIDE 1,000 MG in D5W 5% 150 ML IV SCH ×2 (03:20→16:20)
[2021-04-25] MEDS: HEPARIN DRIP/D5W 100UNITS/ML 250 ML IV SCH ×2 (04:00→19:51)
[2021-04-25] MEDS: fentaNYL Drip 2500mCg/250mlNS 250 ML IV SCH ×3 (05:15→18:29)
[2021-04-25 05:42] LABS: Basophils # (auto) 0 10 ^3/uL (0-0.2); Basophils % (auto) 0.1 % (0.0-2.0); Eosinophils # (auto) 0.3 10 ^3/uL (0-0.8); Eosinophils % (auto) 1.5 % (0.0-7.0); Hematocrit 34.7 % (41.0-53.0); Hemoglobin 11.6 g/dL (13.5-17.5); Lymphocytes # (auto) 0.8 10 ^3/uL (0.4-5.4); Lymphocytes % (auto) 4.1 % (10.0-50.0); Mean Corpuscular Hemoglobin 31.1 pg (28.0-32.0); Mean Corpuscular Hgb Conc. 33.5 g/dL (32.0-36.0); Mean Corpuscular Volume 92.8 fL (80.0-100.0); Monocytes # (auto) 1.2 10 ^3/uL (0-1.3); Monocytes % (auto) 5.8 % (0.0-12.0); Neutrophils # (auto) 17.6 10 ^3/uL (1.6-8.6); Neutrophils % (auto) 88.5 % (37.0-80.0); Red Blood Cells 3.74 10^6/uL (4.5-5.90); Red Cell Distribution Width 15.2 % (11.8-14.3); White Blood Cell 19.9 10^3/uL (4.4-10.8)
[2021-04-25 05:58] LABS: Albumin 1.7 g/dL (3.4-5.0); BUN/Creatinine Ratio 41.7; Bilirubin, Direct 5.1 mg/dL (0-0.2); Bilirubin, Total 6.1 mg/dL (0.2-1.0); Calcium 6.5 mg/dL (8.5-10.1); Total Protein 4.3 g/dL (6.4-8.2)
[2021-04-25] MEDS: METOCLOPRAMIDE HCL 5MG/ml INJ 2ml VIAL IV SCH ×3 (06:00→21:43)
[2021-04-25] MEDS: CALCIUM ACETATE 667 MG CAP NG SCH ×3 (06:00→21:43)
[2021-04-25 06:05] LABS: INR 1.08 (0.9-1.15)
[2021-04-25 06:13] LABS: Potassium 2.6 mmol/L (3.5-5.1)
[2021-04-25] MEDS: ACCU-CHEK COMFORT CURVE STRIP VI SCH ×3 (06:30→17:43)
[2021-04-25] MEDS: InsuLIN REG 1unit/0.01ml Soln (100units/ml) SC SCH ×3 (06:30→17:46)
[2021-04-25] MEDS: BUDESONIDE (INHALATION) 0.5 MG/2 ML NEB NEB SCH ×2 (06:48→22:33)
[2021-04-25] MEDS: IPRATROPIUM BROM 0.5 MG/2.5ML INH SOL NEB SCH ×3 (06:48→22:32)
[2021-04-25] MEDS: ALBUTEROL SULF 2.5 MG/0.5ML(0.5%) NEB SOLN NEB SCH ×3 (06:48→22:32)
[2021-04-25 08:32] LABS: Albumin 2.2 g/dL (3.4-5.0); Calcium 8.2 mg/dL (8.5-10.1); Potassium 3.4 mmol/L (3.5-5.1)
[2021-04-25 08:37] LABS: BUN/Creatinine Ratio 35.3; Bilirubin, Total 8.1 mg/dL (0.2-1.0); Total Protein 5.5 g/dL (6.4-8.2)
[2021-04-25] MEDS: VANCOMYCIN 1GM/250ML 250 ML IV SCH (09:21)
[2021-04-25] MEDS: NOREPINEPHRINE 8 MG/250ML KIT 250 ML IV SCH (09:35)
[2021-04-25] MEDS ORDERED: ROCURONIUM 10MG/ML 10ML VIAL IV ONE ×2 (09:39→09:45)
[2021-04-25] MEDS: PANTOPRAZOLE 40 MG/10 ML VIAL INJ IV SCH (10:26)
[2021-04-25] MEDS: ZINC SULFATE 220mg CAP or TAB PO SCH (10:26)
[2021-04-25] MEDS: CHOLECALCIFEROL (VITD3) 2,000 UNIT CAP/TAB PO SCH (10:26)
[2021-04-25] MEDS: DexAMETHasone SOD PHOS 10MG/1ML VIAL INJ IV SCH (10:26)
[2021-04-25] MEDS: ASCORBIC ACID 1,000 MG TAB PO SCH (10:26)
[2021-04-25] MEDS ORDERED: TPN PER PHARMACY 0 ML IV SCH (11:15)
[2021-04-25 11:25] LABS: Magnesium 2.3 mg/dL (1.6-2.6); Phosphorus 4.2 mg/dL (2.5-4.90)
[2021-04-25] MEDS: POTASSIUM CHL 20MEQ/100ML 100 ML IV SCH ×2 (11:44→15:01)
[2021-04-25] MEDS ORDERED: DEXTROSE (50%) 50ML SYRG IV SCH (12:00)
[2021-04-25 13:24] LABS: INR 1.03 (0.9-1.15); Partial Thromboplastin Time 65.2 sec (23.0-31.2)
[2021-04-25] MEDS: BUMETANIDE INJECTION 12.5 MG in GIVE UN-DILUTED 0 ML IV SCH (18:21)
[2021-04-25 19:17] LABS: INR 1.03 (0.9-1.15); Partial Thromboplastin Time 67.2 sec (23.0-31.2)
[2021-04-25] MEDS ORDERED: TPN PER PHARMACY IV NR ×10 (20:00)
[2021-04-25] MEDS: INSULIN LANTUS (GLARGINE) 1 /0.01ml (100units/ml) SC SCH (21:46)
[2021-04-25 22:22] LABS: Hematocrit 33.5 % (41.0-53.0); Hemoglobin 11.2 g/dL (13.5-17.5); Mean Corpuscular Hemoglobin 31.1 pg (28.0-32.0)
[2021-04-25 22:24] LABS: Mean Corpuscular Hgb Conc. 33.5 g/dL (32.0-36.0); Mean Corpuscular Volume 92.9 fL (80.0-100.0); Red Blood Cells 3.61 10^6/uL (4.5-5.90); Red Cell Distribution Width 15.6 % (11.8-14.3)
[2021-04-25 22:43] LABS: White Blood Cell 35.6 10^3/uL (4.4-10.8)
[2021-04-25 22:44] LABS: Basophils % (manual) 0 (0.0-2.0); Blast Cells 0; Metamyelocytes % 0; Monocytes % (manual) 0 (0-12); Myelocytes % 0; Promyelocytes % 0
[2021-04-25] MEDS ORDERED: VANCOMYCIN 1GM/250ML 250 ML IV SCH (23:00)
[2021-04-25 23:59] LABS: Band Neutrophils % (manual) 3; Eosinophils % (manual) 2 (0-7); Lymphocytes % (manual) 2 (10.0-50.0); Reactive Lymphocytes 1
[2021-04-26] VITALS (104 sets, daily range): BP systolic 11–134; BP diastolic 42–75
[2021-04-26] MEDS: PIPERACILLIN-TAZOB 3.375GM 100 ML IV SCH ×3 (00:33→14:29)
[2021-04-26] MEDS: InsuLIN REG 1unit/0.01ml Soln (100units/ml) SC SCH ×4 (00:51→18:13)
[2021-04-26] MEDS: PROPOFOL 100 ML IV SCH ×6 (00:52→14:00)
[2021-04-26] MEDS: ACETAMINOPHEN 325 MG TAB PO PRN ×2 (00:53→06:36)
[2021-04-26] MEDS: VANCOMYCIN 1GM/250ML 250 ML IV SCH ×2 (03:22→21:54)
[2021-04-26] MEDS: fentaNYL Drip 2500mCg/250mlNS 250 ML IV SCH ×3 (03:23→19:29)
[2021-04-26] MEDS: HEPARIN DRIP/D5W 100UNITS/ML 250 ML IV SCH (05:00)
[2021-04-26] MEDS: ACCU-CHEK COMFORT CURVE STRIP VI SCH ×4 (05:59→12:26)
[2021-04-26] MEDS: CALCIUM ACETATE 667 MG CAP NG SCH ×3 (06:00→22:00)
[2021-04-26] MEDS: METOCLOPRAMIDE HCL 5MG/ml INJ 2ml VIAL IV SCH ×3 (06:00→22:00)
[2021-04-26] MEDS: MIDAZOLAM DRIP 50 mg/50mL 50 ML IV SCH ×3 (06:03→14:30)
[2021-04-26] MEDS: ROCURONIUM BROMIDE 1,000 MG in D5W 5% 150 ML IV SCH (06:05)
[2021-04-26 06:15] LABS: Hematocrit 29.8 % (41.0-53.0); Mean Corpuscular Hemoglobin 31.8 pg (28.0-32.0); Mean Corpuscular Hgb Conc. 33.6 g/dL (32.0-36.0); Mean Corpuscular Volume 94.8 fL (80.0-100.0); Red Blood Cells 3.15 10^6/uL (4.5-5.90); Red Cell Distribution Width 16.1 % (11.8-14.3)
[2021-04-26 06:23] LABS: Albumin 2.1 g/dL (3.4-5.0); BUN/Creatinine Ratio 33.3; Calcium 7.6 mg/dL (8.5-10.1); Magnesium 2.4 mg/dL (1.6-2.6); Potassium 3.5 mmol/L (3.5-5.1)
[2021-04-26 06:26] LABS: Bilirubin, Total 7.4 mg/dL (0.2-1.0); Phosphorus 2.9 mg/dL (2.5-4.90); Total Protein 4.9 g/dL (6.4-8.2)
[2021-04-26 06:30] LABS: Basophils % (manual) 0 (0.0-2.0); Blast Cells 0; Eosinophils % (manual) 0 (0-7); Myelocytes % 0; Promyelocytes % 0; Reactive Lymphocytes 0; White Blood Cell 30.3 10^3/uL (4.4-10.8)
[2021-04-26 06:37] LABS: Pre Albumin 31.6 mg/dL (20.0-40.0)
[2021-04-26] MEDS: IPRATROPIUM BROM 0.5 MG/2.5ML INH SOL NEB SCH ×3 (06:51→22:13)
[2021-04-26] MEDS: ALBUTEROL SULF 2.5 MG/0.5ML(0.5%) NEB SOLN NEB SCH ×3 (06:52→22:13)
[2021-04-26] MEDS: BUDESONIDE (INHALATION) 0.5 MG/2 ML NEB NEB SCH ×2 (06:52→22:13)
[2021-04-26] MEDS: NOREPINEPHRINE 8 MG/250ML KIT 250 ML IV SCH (08:30)
[2021-04-26] MEDS: ZINC SULFATE 220mg CAP or TAB PO SCH (10:00)
[2021-04-26] MEDS: CHOLECALCIFEROL (VITD3) 2,000 UNIT CAP/TAB PO SCH (10:00)
[2021-04-26] MEDS: ASCORBIC ACID 1,000 MG TAB PO SCH (10:00)
[2021-04-26] MEDS: DexAMETHasone SOD PHOS 10MG/1ML VIAL INJ IV SCH (10:42)
[2021-04-26] MEDS: PANTOPRAZOLE 40 MG/10 ML VIAL INJ IV SCH (10:43)
[2021-04-26] MEDS: BUMETANIDE INJECTION 12.5 MG in GIVE UN-DILUTED 0 ML IV SCH (11:15)
[2021-04-26 11:30] LABS: Band Neutrophils % (manual) 5; Lymphocytes % (manual) 1 (10.0-50.0); Metamyelocytes % 1; Monocytes % (manual) 2 (0-12)
[2021-04-26 12:41] LABS: Hematocrit 25.5 % (41.0-53.0); Hemoglobin 8.6 g/dL (13.5-17.5)
[2021-04-26] MEDS: PANTOPRAZOLE 40mg/50ML NS AE 50 ML IV SCH ×3 (16:00→23:13)
[2021-04-26] MEDS: SUCRALFATE 1 GM/10 ML ORAL SUSP GT SCH ×2 (18:12→23:12)
[2021-04-26] MEDS: TPN PER PHARMACY IV NR ×9 (20:53)
[2021-04-26 21:25] LABS: Hematocrit 29.2 % (41.0-53.0); Hemoglobin 9.8 g/dL (13.5-17.5)
[2021-04-26] MEDS ORDERED: PANTOPRAZOLE 40 MG/10 ML VIAL INJ IV SCH (22:00)
[2021-04-26] MEDS ORDERED: INSULIN LANTUS (GLARGINE) 1 /0.01ml (100units/ml) SC SCH (22:00)
[2021-04-27] VITALS (104 sets, daily range): BP systolic 93–130; BP diastolic 43–72
[2021-04-27] MEDS: PIPERACILLIN-TAZOB 3.375GM 100 ML IV SCH ×4 (00:41→17:23)
[2021-04-27] MEDS: InsuLIN REG 1unit/0.01ml Soln (100units/ml) SC SCH ×4 (00:50→17:26)
[2021-04-27] MEDS: ROCURONIUM BROMIDE 1,000 MG in D5W 5% 150 ML IV SCH ×2 (02:14→06:56)
[2021-04-27 03:37] LABS: Hematocrit 26.3 % (41.0-53.0); Mean Corpuscular Hemoglobin 31.7 pg (28.0-32.0); Mean Corpuscular Hgb Conc. 34.4 g/dL (32.0-36.0); Mean Corpuscular Volume 92.2 fL (80.0-100.0); Red Blood Cells 2.85 10^6/uL (4.5-5.90); Red Cell Distribution Width 15.9 % (11.8-14.3)
[2021-04-27] MEDS: PANTOPRAZOLE 40mg/50ML NS AE 50 ML IV SCH ×2 (04:00→08:35)
[2021-04-27 04:11] LABS: Albumin 1.7 g/dL (3.4-5.0); Calcium 7.7 mg/dL (8.5-10.1); Magnesium 2.6 mg/dL (1.6-2.6); Potassium 3.7 mmol/L (3.5-5.1); White Blood Cell 31.7 10^3/uL (4.4-10.8)
[2021-04-27 04:15] LABS: Basophils % (manual) 0 (0.0-2.0); Bilirubin, Direct 5.3 mg/dL (0-0.2); Bilirubin, Total 6.1 mg/dL (0.2-1.0); Blast Cells 0; Eosinophils % (manual) 0 (0-7); Metamyelocytes % 0; Myelocytes % 0; Phosphorus 1.3 mg/dL (2.5-4.90); Promyelocytes % 0; Reactive Lymphocytes 0
[2021-04-27] MEDS: CALCIUM ACETATE 667 MG CAP NG SCH (06:00)
[2021-04-27] MEDS: METOCLOPRAMIDE HCL 5MG/ml INJ 2ml VIAL IV SCH (06:00)
[2021-04-27] MEDS: ACCU-CHEK COMFORT CURVE STRIP VI SCH ×4 (06:11→17:23)
[2021-04-27] MEDS: SUCRALFATE 1 GM/10 ML ORAL SUSP GT SCH ×4 (06:17→21:35)
[2021-04-27] MEDS: BUDESONIDE (INHALATION) 0.5 MG/2 ML NEB NEB SCH ×2 (06:33→22:44)
[2021-04-27] MEDS: ALBUTEROL SULF 2.5 MG/0.5ML(0.5%) NEB SOLN NEB SCH ×3 (06:33→22:44)
[2021-04-27] MEDS: IPRATROPIUM BROM 0.5 MG/2.5ML INH SOL NEB SCH ×3 (06:33→22:44)
[2021-04-27 06:34] LABS: Band Neutrophils % (manual) 18; Lymphocytes % (manual) 5 (10.0-50.0); Monocytes % (manual) 5 (0-12)
[2021-04-27] MEDS: MIDAZOLAM DRIP 50 mg/50mL 50 ML IV SCH ×2 (06:55→09:01)
[2021-04-27] MEDS: fentaNYL Drip 2500mCg/250mlNS 250 ML IV SCH ×2 (06:57→11:51)
[2021-04-27] MEDS: NOREPINEPHRINE 8 MG/250ML KIT 250 ML IV SCH (08:30)
[2021-04-27] MEDS: PROPOFOL 100 ML IV SCH ×4 (09:02→18:46)
[2021-04-27] MEDS: ZINC SULFATE 220mg CAP or TAB PO SCH (10:00)
[2021-04-27] MEDS: CHOLECALCIFEROL (VITD3) 2,000 UNIT CAP/TAB PO SCH (10:00)
[2021-04-27] MEDS ORDERED: POTASSIUM PHOSPHATE 44 MEQ in D5W 5% 250 ML IV ONE (10:00)
[2021-04-27] MEDS: ASCORBIC ACID 1,000 MG TAB PO SCH (10:00)
[2021-04-27 10:16] LABS: Hematocrit 26.1 % (41.0-53.0); Hemoglobin 8.9 g/dL (13.5-17.5)
[2021-04-27] MEDS: BUMETANIDE INJECTION 12.5 MG in GIVE UN-DILUTED 0 ML IV SCH (11:15)
[2021-04-27] MEDS: DexAMETHasone SOD PHOS 10MG/1ML VIAL INJ IV SCH (11:42)
[2021-04-27] MEDS: INSULIN LANTUS (GLARGINE) 1 /0.01ml (100units/ml) SC SCH ×2 (11:45→21:35)
[2021-04-27] MEDS ORDERED: VANCOMYCIN 1GM/250ML 250 ML IV SCH (12:00)
[2021-04-27 18:38] LABS: Hemoglobin 8.3 g/dL (13.5-17.5)
[2021-04-27 18:40] LABS: Hematocrit 24.4 % (41.0-53.0)
[2021-04-27] MEDS: TPN PER PHARMACY IV NR ×9 (19:45)
[2021-04-27] MEDS ORDERED: [UNRECOGNIZED DRUG - OTHER] IV NR ×9 (20:00)
[2021-04-27] MEDS ORDERED: CALCIUM GLUC IV NR ×9 (20:00)
[2021-04-27] MEDS ORDERED: POTASSIUM PHOSPHATE IV NR ×9 (20:00)
[2021-04-27] MEDS: PANTOPRAZOLE 40 MG/10 ML VIAL INJ IV SCH (22:20)
[2021-04-27] MEDS: VANCOMYCIN 1GM/250ML 250 ML IV SCH (23:29)
[2021-04-28] VITALS (107 sets, daily range): BP systolic 100–133; BP diastolic 49–72
[2021-04-28] MEDS: ACCU-CHEK COMFORT CURVE STRIP VI SCH ×4 (00:03→18:08)
[2021-04-28] MEDS: PROPOFOL 100 ML IV SCH ×8 (00:04→22:30)
[2021-04-28] MEDS: InsuLIN REG 1unit/0.01ml Soln (100units/ml) SC SCH ×4 (00:23→18:14)
[2021-04-28] MEDS: PIPERACILLIN-TAZOB 3.375GM 100 ML IV SCH ×4 (00:29→18:02)
[2021-04-28 02:39] LABS: Hematocrit 23.6 % (41.0-53.0); Hemoglobin 8.4 g/dL (13.5-17.5); Mean Corpuscular Hemoglobin 32.8 pg (28.0-32.0); Mean Corpuscular Hgb Conc. 35.4 g/dL (32.0-36.0); Mean Corpuscular Volume 92.6 fL (80.0-100.0); Red Blood Cells 2.55 10^6/uL (4.5-5.90); Red Cell Distribution Width 15.9 % (11.8-14.3); White Blood Cell 23.8 10^3/uL (4.4-10.8)
[2021-04-28 02:49] LABS: Basophils % (manual) 0 (0.0-2.0); Blast Cells 0; Eosinophils % (manual) 0 (0-7); Promyelocytes % 0; Reactive Lymphocytes 0
[2021-04-28 03:09] LABS: Albumin 1.7 g/dL (3.4-5.0); Calcium 8.1 mg/dL (8.5-10.1); Magnesium 2.6 mg/dL (1.6-2.6); Potassium 3.8 mmol/L (3.5-5.1)
[2021-04-28 03:19] LABS: BUN/Creatinine Ratio 48.8; Bilirubin, Total 5.4 mg/dL (0.2-1.0); CRP High Sensitivity 12.1 mg/dL (< 0.3); Phosphorus 2.1 mg/dL (2.5-4.90); Total Protein 5.1 g/dL (6.4-8.2)
[2021-04-28 04:56] LABS: Band Neutrophils % (manual) 22; Lymphocytes % (manual) 4 (10.0-50.0); Metamyelocytes % 3; Monocytes % (manual) 8 (0-12); Myelocytes % 1
[2021-04-28] MEDS: SUCRALFATE 1 GM/10 ML ORAL SUSP GT SCH ×4 (06:50→22:30)
[2021-04-28] MEDS: BUDESONIDE (INHALATION) 0.5 MG/2 ML NEB NEB SCH ×2 (07:56→22:24)
[2021-04-28] MEDS: IPRATROPIUM BROM 0.5 MG/2.5ML INH SOL NEB SCH ×3 (07:56→22:24)
[2021-04-28] MEDS: ALBUTEROL SULF 2.5 MG/0.5ML(0.5%) NEB SOLN NEB SCH ×3 (07:56→22:24)
[2021-04-28] MEDS: NOREPINEPHRINE 8 MG/250ML KIT 250 ML IV SCH (08:30)
[2021-04-28] MEDS: ROCURONIUM BROMIDE 1,000 MG in D5W 5% 150 ML IV SCH (09:30)
[2021-04-28] MEDS: ZINC SULFATE 220mg CAP or TAB PO SCH (10:00)
[2021-04-28] MEDS: ASCORBIC ACID 1,000 MG TAB PO SCH (10:00)
[2021-04-28] MEDS: CHOLECALCIFEROL (VITD3) 2,000 UNIT CAP/TAB PO SCH (10:00)
[2021-04-28] MEDS: VANCOMYCIN 1GM/250ML 250 ML IV SCH (10:13)
[2021-04-28] MEDS: PANTOPRAZOLE 40 MG/10 ML VIAL INJ IV SCH ×2 (10:13→22:30)
[2021-04-28] MEDS: MIDAZOLAM DRIP 50 mg/50mL 50 ML IV SCH ×4 (10:16→22:31)
[2021-04-28] MEDS: INSULIN LANTUS (GLARGINE) 1 /0.01ml (100units/ml) SC SCH ×2 (10:48→22:49)
[2021-04-28] MEDS ORDERED: acetaZOLAMIDE SODIUM 500 MG VL IV ONE (11:00)
[2021-04-28] MEDS: fentaNYL Drip 2500mCg/250mlNS 250 ML IV SCH ×2 (11:05→18:08)
[2021-04-28] MEDS ORDERED: TPN PER PHARMACY IV NR ×9 (20:00)
[2021-04-29] VITALS (105 sets, daily range): BP systolic 95–156; BP diastolic 44–76
[2021-04-29] MEDS: VANCOMYCIN 1GM/250ML 250 ML IV SCH ×3 (00:26→23:33)
[2021-04-29] MEDS: ACCU-CHEK COMFORT CURVE STRIP VI SCH ×5 (00:26→23:33)
[2021-04-29] MEDS: InsuLIN REG 1unit/0.01ml Soln (100units/ml) SC SCH ×5 (00:29→23:32)
[2021-04-29] MEDS: ROCURONIUM BROMIDE 1,000 MG in D5W 5% 150 ML IV SCH ×2 (01:08→16:46)
[2021-04-29] MEDS: MIDAZOLAM DRIP 50 mg/50mL 50 ML IV SCH ×4 (05:39→16:00)
[2021-04-29] MEDS: PROPOFOL 100 ML IV SCH ×8 (05:39→23:03)
[2021-04-29] MEDS: PIPERACILLIN-TAZOB 3.375GM 100 ML IV SCH ×4 (06:25→17:38)
[2021-04-29] MEDS: SUCRALFATE 1 GM/10 ML ORAL SUSP GT SCH ×4 (06:37→23:30)
[2021-04-29 06:42] LABS: Hemoglobin 8.8 g/dL (13.5-17.5); Mean Corpuscular Hemoglobin 32.4 pg (28.0-32.0); Mean Corpuscular Hgb Conc. 33.8 g/dL (32.0-36.0); Mean Corpuscular Volume 95.9 fL (80.0-100.0); Red Blood Cells 2.71 10^6/uL (4.5-5.90); Red Cell Distribution Width 17.1 % (11.8-14.3); White Blood Cell 22.9 10^3/uL (4.4-10.8)
[2021-04-29 06:52] LABS: Magnesium 2.7 mg/dL (1.6-2.6)
[2021-04-29 06:57] LABS: Basophils % (manual) 0 (0.0-2.0); Blast Cells 0; Promyelocytes % 0; Reactive Lymphocytes 0
[2021-04-29 07:04] LABS: Albumin 1.6 g/dL (3.4-5.0); BUN/Creatinine Ratio 52.2; Bilirubin, Total 7.7 mg/dL (0.2-1.0); Calcium 8.8 mg/dL (8.5-10.1); Phosphorus 3.6 mg/dL (2.5-4.90); Total Protein 5.7 g/dL (6.4-8.2)
[2021-04-29] MEDS: ALBUTEROL SULF 2.5 MG/0.5ML(0.5%) NEB SOLN NEB SCH ×3 (07:13→19:25)
[2021-04-29] MEDS: IPRATROPIUM BROM 0.5 MG/2.5ML INH SOL NEB SCH ×3 (07:13→19:25)
[2021-04-29] MEDS: BUDESONIDE (INHALATION) 0.5 MG/2 ML NEB NEB SCH ×2 (07:13→19:25)
[2021-04-29] MEDS: fentaNYL Drip 2500mCg/250mlNS 250 ML IV SCH ×2 (07:48→18:15)
[2021-04-29] MEDS: NOREPINEPHRINE 8 MG/250ML KIT 250 ML IV SCH (08:30)
[2021-04-29 08:48] LABS: Band Neutrophils % (manual) 5; Eosinophils % (manual) 6 (0-7); Lymphocytes % (manual) 7 (10.0-50.0); Metamyelocytes % 1; Monocytes % (manual) 1 (0-12); Myelocytes % 1
[2021-04-29 09:02] LABS: INR 0.85 (0.9-1.15); Partial Thromboplastin Time 22.2 sec (23.6-33.0)
[2021-04-29] MEDS: ZINC SULFATE 220mg CAP or TAB PO SCH (10:46)
[2021-04-29] MEDS: CHOLECALCIFEROL (VITD3) 2,000 UNIT CAP/TAB PO SCH (10:46)
[2021-04-29] MEDS: ASCORBIC ACID 1,000 MG TAB PO SCH (10:46)
[2021-04-29] MEDS: PANTOPRAZOLE 40 MG/10 ML VIAL INJ IV SCH ×2 (10:47→23:30)
[2021-04-29] MEDS: BUMETANIDE 2.5mg/10ml (0.25 mg/ml) INJ IV SCH (10:47)
[2021-04-29] MEDS: INSULIN LANTUS (GLARGINE) 1 /0.01ml (100units/ml) SC SCH ×2 (10:49→23:31)
[2021-04-29] MEDS ORDERED: acetaZOLAMIDE SODIUM 500 MG VL IV ONE (13:30)
[2021-04-29] MEDS ORDERED: TPN PER PHARMACY IV NR ×7 (20:00)
[2021-04-30] VITALS (107 sets, daily range): BP systolic 95–148; BP diastolic 47–69
[2021-04-30] MEDS: PIPERACILLIN-TAZOB 3.375GM 100 ML IV SCH ×4 (01:03→17:54)
[2021-04-30] MEDS: MIDAZOLAM DRIP 50 mg/50mL 50 ML IV SCH ×5 (01:04→23:23)
[2021-04-30] MEDS: fentaNYL Drip 2500mCg/250mlNS 250 ML IV SCH (02:20)
[2021-04-30] MEDS: PROPOFOL 100 ML IV SCH ×4 (04:50→23:24)
[2021-04-30 05:05] LABS: Hematocrit 25.6 % (41.0-53.0); Hemoglobin 8.6 g/dL (13.5-17.5); Mean Corpuscular Hemoglobin 32.5 pg (28.0-32.0); Mean Corpuscular Hgb Conc. 33.6 g/dL (32.0-36.0); Mean Corpuscular Volume 96.9 fL (80.0-100.0); Red Blood Cells 2.64 10^6/uL (4.5-5.90); Red Cell Distribution Width 18.3 % (11.8-14.3); White Blood Cell 20.8 10^3/uL (4.4-10.8)
[2021-04-30] MEDS: ACCU-CHEK COMFORT CURVE STRIP VI SCH ×3 (05:19→17:55)
[2021-04-30 05:21] LABS: Band Neutrophils % (manual) 0; Basophils % (manual) 0 (0.0-2.0); Blast Cells 0; Metamyelocytes % 0; Promyelocytes % 0; Reactive Lymphocytes 0
[2021-04-30] MEDS: InsuLIN REG 1unit/0.01ml Soln (100units/ml) SC SCH ×3 (05:23→17:58)
[2021-04-30 05:24] LABS: Magnesium 2.7 mg/dL (1.6-2.6); Potassium 3.4 mmol/L (3.5-5.1)
[2021-04-30 05:31] LABS: Albumin 1.4 g/dL (3.4-5.0); BUN/Creatinine Ratio 44.8; Bilirubin, Direct 6.5 mg/dL (0-0.2); Calcium 8.6 mg/dL (8.5-10.1); Total Protein 5.4 g/dL (6.4-8.2)
[2021-04-30] MEDS: BUDESONIDE (INHALATION) 0.5 MG/2 ML NEB NEB SCH ×2 (06:43→22:31)
[2021-04-30] MEDS: IPRATROPIUM BROM 0.5 MG/2.5ML INH SOL NEB SCH ×3 (06:43→22:31)
[2021-04-30] MEDS: ALBUTEROL SULF 2.5 MG/0.5ML(0.5%) NEB SOLN NEB SCH ×3 (06:43→22:31)
[2021-04-30] MEDS: SUCRALFATE 1 GM/10 ML ORAL SUSP GT SCH ×4 (06:53→21:26)
[2021-04-30] MEDS: ROCURONIUM BROMIDE 1,000 MG in D5W 5% 150 ML IV SCH (08:04)
[2021-04-30] MEDS: NOREPINEPHRINE 8 MG/250ML KIT 250 ML IV SCH (08:07)
[2021-04-30] MEDS ORDERED: POTASSIUM CHL 20MEQ/100ML 100 ML IV ONE (09:30)
[2021-04-30] MEDS: ZINC SULFATE 220mg CAP or TAB PO SCH (10:00)
[2021-04-30] MEDS: CHOLECALCIFEROL (VITD3) 2,000 UNIT CAP/TAB PO SCH (10:00)
[2021-04-30] MEDS: ASCORBIC ACID 1,000 MG TAB PO SCH (10:00)
[2021-04-30] MEDS: BUMETANIDE 2.5mg/10ml (0.25 mg/ml) INJ IV SCH (10:00)
[2021-04-30] MEDS: PANTOPRAZOLE 40 MG/10 ML VIAL INJ IV SCH ×2 (10:00→21:26)
[2021-04-30] MEDS: INSULIN LANTUS (GLARGINE) 1 /0.01ml (100units/ml) SC SCH ×2 (10:00→21:27)
[2021-04-30 10:18] LABS: Eosinophils % (manual) 3 (0-7); Lymphocytes % (manual) 4 (10.0-50.0); Monocytes % (manual) 1 (0-12); Myelocytes % 1
[2021-04-30] MEDS: VANCOMYCIN 1GM/250ML 250 ML IV SCH ×2 (11:08→23:18)
[2021-04-30] MEDS ORDERED: MIDAZOLAM DRIP 50 mg/50mL 50 ML IV ONE (11:43)
[2021-04-30] MEDS: FREE WATER GT SCH ×2 (17:54→21:26)
[2021-04-30] MEDS: TPN PER PHARMACY IV NR ×7 (20:39)
[2021-04-30] MEDS: FENTANYL CITRATE IV SCH (21:26)
[2021-04-30] MEDS: GIVE UN DILUTED IV SCH (21:26)
[2021-05-01] VITALS (108 sets, daily range): BP systolic 82–116; BP diastolic 41–59
[2021-05-01] MEDS: ROCURONIUM BROMIDE 1,000 MG in D5W 5% 150 ML IV SCH ×2 (00:02→15:20)
[2021-05-01] MEDS: ACCU-CHEK COMFORT CURVE STRIP VI SCH ×4 (01:06→17:53)
[2021-05-01] MEDS: PIPERACILLIN-TAZOB 3.375GM 100 ML IV SCH ×4 (01:07→18:01)
[2021-05-01] MEDS: InsuLIN REG 1unit/0.01ml Soln (100units/ml) SC SCH ×4 (01:07→17:59)
[2021-05-01] MEDS: FREE WATER GT SCH ×6 (01:08→21:37)
[2021-05-01] MEDS: NOREPINEPHRINE 8 MG/250ML KIT 250 ML IV SCH (01:30)
[2021-05-01] MEDS: PROPOFOL 100 ML IV SCH (05:06)
[2021-05-01] MEDS: SUCRALFATE 1 GM/10 ML ORAL SUSP GT SCH ×4 (06:38→21:37)
[2021-05-01] MEDS: ALBUTEROL SULF 2.5 MG/0.5ML(0.5%) NEB SOLN NEB SCH ×3 (07:11→21:58)
[2021-05-01] MEDS: IPRATROPIUM BROM 0.5 MG/2.5ML INH SOL NEB SCH ×3 (07:11→21:58)
[2021-05-01] MEDS: BUDESONIDE (INHALATION) 0.5 MG/2 ML NEB NEB SCH ×2 (07:11→21:58)
[2021-05-01 07:18] LABS: Albumin 1.2 g/dL (3.4-5.0); Calcium 8.8 mg/dL (8.5-10.1); Magnesium 2.4 mg/dL (1.6-2.6); Potassium 3.5 mmol/L (3.5-5.1)
[2021-05-01 07:22] LABS: BUN/Creatinine Ratio 37.9; Bilirubin, Total 7.2 mg/dL (0.2-1.0); Phosphorus 3.8 mg/dL (2.5-4.90); Total Protein 5.5 g/dL (6.4-8.2)
[2021-05-01] MEDS: PANTOPRAZOLE 40 MG/10 ML VIAL INJ IV SCH ×2 (10:00→21:37)
[2021-05-01] MEDS: ZINC SULFATE 220mg CAP or TAB PO SCH (10:00)
[2021-05-01] MEDS: CHOLECALCIFEROL (VITD3) 2,000 UNIT CAP/TAB PO SCH (10:00)
[2021-05-01] MEDS: INSULIN LANTUS (GLARGINE) 1 /0.01ml (100units/ml) SC SCH ×2 (10:00→21:39)
[2021-05-01] MEDS: ASCORBIC ACID 1,000 MG TAB PO SCH (10:00)
[2021-05-01] MEDS: BUMETANIDE 2.5mg/10ml (0.25 mg/ml) INJ IV SCH (10:30)
[2021-05-01] MEDS: VANCOMYCIN 1GM/250ML 250 ML IV SCH (11:07)
[2021-05-01] MEDS: MIDAZOLAM DRIP 50 mg/50mL 50 ML IV SCH (13:29)
[2021-05-01] MEDS: ACETAMINOPHEN 325 MG TAB PO PRN (15:40)
[2021-05-01] MEDS: FENTANYL CITRATE IV SCH (18:03)
[2021-05-01] MEDS: GIVE UN DILUTED IV SCH (18:03)
[2021-05-01] MEDS: TPN PER PHARMACY IV NR ×7 (19:55)
[2021-05-01] MEDS ORDERED: TPN PER PHARMACY IV NR ×7 (20:00)
[2021-05-02] VITALS (15 sets, daily range): BP systolic 64–102; BP diastolic 37–52
[2021-05-02] MEDS: PIPERACILLIN-TAZOB 3.375GM 100 ML IV SCH
[2021-05-02] MEDS: ACCU-CHEK COMFORT CURVE STRIP VI SCH (01:48)
[2021-05-02] MEDS: InsuLIN REG 1unit/0.01ml Soln (100units/ml) SC SCH (01:48)
[2021-05-02] MEDS: VANCOMYCIN 1GM/250ML 250 ML IV SCH (01:49)
[2021-05-02] MEDS: PROPOFOL 100 ML IV SCH (01:49)
[2021-05-02] MEDS: FREE WATER GT SCH (01:49)
[2021-05-02] MEDS: MIDAZOLAM DRIP 50 mg/50mL 50 ML IV SCH (01:50)
[2021-05-02] MEDS ORDERED: DOPamine 1600MCG/ML D5W 250 ML IV ONE (03:02)
[2021-05-02] MEDS ORDERED: SODIUM BICARBONATE 8.4% INJ 50ML SYRINGE ONE (03:16)
== END 2021-05-02 06:47 | DRG 870 ==
LOC: ER 11:33 → TELE 14:20 → TELE-EAST 16:51 → ICU WEST 04-12 13:16
PROVIDERS: ADMIT Hospitalist; ATTEND Internal Medicine
PROC: XW033E5 Introduction of Remdesivir Anti-infective into Peripheral Vein, Percutaneous Approach, New Technology Group 5 (ICD-10-PCS; 2021-04-10)
PROC: 5A09357 Assistance with Respiratory Ventilation, Less than 24 Consecutive Hours, Continuous Positive Airway Pressure (ICD-10-PCS; 2021-04-12)
PROC: XW033H5 Introduction of Tocilizumab into Peripheral Vein, Percutaneous Approach, New Technology Group 5 (ICD-10-PCS; 2021-04-12)
PROC: 5A09457 Assistance with Respiratory Ventilation, 24-96 Consecutive Hours, Continuous Positive Airway Pressure (ICD-10-PCS; 2021-04-13)
PROC: 05HD33Z Insertion of Infusion Device into Right Cephalic Vein, Percutaneous Approach (ICD-10-PCS; 2021-04-14)
PROC: B54MZZA Ultrasonography of Right Upper Extremity Veins, Guidance (ICD-10-PCS; 2021-04-14)
PROC: 5A1955Z Respiratory Ventilation, Greater than 96 Consecutive Hours (ICD-10-PCS; principal; 2021-04-15)
PROC: 0BH17EZ Insertion of Endotracheal Airway into Trachea, Via Natural or Artificial Opening (ICD-10-PCS; 2021-04-15)
PROC: 06HM33Z Insertion of Infusion Device into Right Femoral Vein, Percutaneous Approach (ICD-10-PCS; 2021-04-15)
PROC: B54BZZA Ultrasonography of Right Lower Extremity Veins, Guidance (ICD-10-PCS; 2021-04-15)
PROC: 03HY32Z Insertion of Monitoring Device into Upper Artery, Percutaneous Approach (ICD-10-PCS; 2021-04-15)
PROC: 4A133B1 Monitoring of Arterial Pressure, Peripheral, Percutaneous Approach (ICD-10-PCS; 2021-04-15)
PROC: 4A133J1 Monitoring of Arterial Pulse, Peripheral, Percutaneous Approach (ICD-10-PCS; 2021-04-15)
PROC: 0B21XEZ Change Endotracheal Airway in Trachea, External Approach (ICD-10-PCS; 2021-04-25)
PROC: 30233N1 Transfusion of Nonautologous Red Blood Cells into Peripheral Vein, Percutaneous Approach (ICD-10-PCS; 2021-04-26)
PROC: 5A12012 Performance of Cardiac Output, Single, Manual (ICD-10-PCS; 2021-05-02)
DX: A41.89 Other specified sepsis (principal); U07.1 COVID-19; J12.82 Pneumonia due to coronavirus disease 2019; N17.0 Acute kidney failure with tubular necrosis; G93.41 Metabolic encephalopathy; J80 Acute respiratory distress syndrome; R65.21 Severe sepsis with septic shock; E44.0 Moderate protein-calorie malnutrition; E87.1 Hypo-osmolality and hyponatremia; E87.0 Hyperosmolality and hypernatremia; Z68.41 Body mass index [BMI] 40.0-44.9, adult; D68.9 Coagulation defect, unspecified; I13.0 Hypertensive heart and chronic kidney disease with heart failure and stage 1 through stage 4 chronic kidney disease, or unspecified chronic kidney disease; J94.2 Hemothorax; T79.7XXA Traumatic subcutaneous emphysema, initial encounter; J93.9 Pneumothorax, unspecified; E66.01 Morbid (severe) obesity due to excess calories; I50.9 Heart failure, unspecified; E78.5 Hyperlipidemia, unspecified; E87.6 Hypokalemia; E87.5 Hyperkalemia; K76.0 Fatty (change of) liver, not elsewhere classified; N18.32 Chronic kidney disease, stage 3b; D64.9 Anemia, unspecified; D69.6 Thrombocytopenia, unspecified; Z83.3 Family history of diabetes mellitus
CPT/HCPCS: 36415; 36600; 71045; 76705; 80048; 80053; 80061; 80076; 80202; 80307; 81001; 82040; 82248; 82306; 82570; 82728; 82805; 82962; 83036; 83605; 83615; 83735; 83880; 84100; 84132; 84156; 84300; 84443; 84478; 84484; 85007; 85014; 85018; 85025; 85027; 85379; 85610; 85730; 86141; 86850; 86900; 86901; 86920; 87040; 87070; 87077; 87081; 87086; 87205; 87426; 87804; 92950; 93005; 93970; 93971; 94002; 94003; 94640; 94660; 96361; 96374; 99291; C9113; G0378; J0330; J1100; J1815; J1956; J2250; J2543; J2704; J3430; J3480; J3490; J7060